=== PATIENT | male | born 1965 | race Caucasian/White ===

== ENCOUNTER → 2016-07-06 | Outpatient (CLI) | payer OTHER ==
[~2016-07-06] MED LIST: /MOXI40TA; FLEXERIL10 PO; FLON0.05; FLOV50AE; FOLI1TAB; IBUP600T; LOTRIMCREA TOPICALLY; METH2.5T; MOTRIN600 PO; NORMSALNS INHALATION; PRED10TA2; PRILOSEC40 PO; REMICAID; VIST25CA; ZANT150T
--- NOTE | 2016-07-06 11:01 | REP ---
Clinical: Persistent asthma . Comparison: 11/15/2013 . Technique: PA and lateral. Findings: The mediastinum and cardiac silhouette are normal. The lung nieto are clear and without acute consolidation, effusion, or pneumothorax. The skeletal structures are intact and normal. Impression: 1. No acute cardiopulmonary process. Signed by Joel Norris MD 07/06/2016 10:52 A
== END ==
LOC: M SMT 09:53
PROVIDERS: ATTEND Internal Medicine Pulmonary Disease
DX: J45.40 Moderate persistent asthma, uncomplicated (principal)

== ENCOUNTER → 2016-07-06 | Outpatient (CLI) | payer OTHER ==
--- NOTE | 2016-07-06 11:02 | REP ---
Clinical: Hip pain. Technique: AP, cephalic angled, and bilateral oblique views of the sacroiliac joints. Findings: The sacroiliac joints are symmetric and normal for age. No excessive sclerotic, degenerative, or osteophytic changes are appreciated. Impression: Normal radiographic evaluation of the sacroiliac joints Signed by Joel Norris MD 07/06/2016 10:53 A
--- NOTE | 2016-07-06 11:03 | REP ---
Clinical: Right hip pain. Technique: Neutral and frog lateral views of the right hip. Findings: Subtle increased sclerosis to the acetabular roof with minimal joint space narrowing and small spurring noted. No periarticular calcifications. No evidence for acute or healed fracture. Impression: Mild age-related degenerative changes. Signed by Joel Norris MD 07/06/2016 10:54 A
--- NOTE | 2016-07-06 11:09 | REP ---
LUMBAR SPINE, FIVE VIEWS: HISTORY: Back pain. COMPARISON: 03/05/2009 There is no acute fracture or subluxation. The L5-S1 intervertebral disc is decreased in height consistent with disc degeneration. Osteophytes are present on L2 and L5. The facet joints are normal in appearance. IMPRESSION: Degenerative change as described above. Signed by Hair Salgado MD 07/06/2016 11:15 A
== END ==
LOC: M SMT 10:11
PROVIDERS: ATTEND Internal Medicine Rheumatology
DX: M54.5 Low back pain (principal); M25.551 Pain in right hip

== ENCOUNTER 2016-12-09 11:55 | Emergency (ER) | payer OTHER ==
[~2016-12-09] VITALS: Ht 175.3 cm; Wt 100.0 kg
[2016-12-09] MEDS ORDERED: CLINDAMYCIN PO (12:19)
[2016-12-09] MEDS ORDERED: SIMP50IN2 SC (12:19)
[2016-12-09] MEDS ORDERED: SYMB16INH INH (12:19)
[2016-12-09] MEDS ORDERED: LIDO1OIN2 (12:19)
[2016-12-09 13:15] LABS: BASO # 0.1 K/mm3 (0.0-0.2); BASO % 0.9 % (0.0-1.0); EOS # 0.3 K/mm3 (0.0-0.50); EOS % 2.6 % (0.0-3.0); LARGE UNSTAINED CELL # 0.2 K/mm3 (0.0-0.4); LARGE UNSTAINED CELL % 1.7 % (0.0-4.0); LYMPH # 2.5 K/mm3 (1.5-4.5); LYMPH % 21.7 % (24.0-44.0); MEAN CORPUSCULAR HEMOGLOBIN 32.5 pg (27.0-33.0); MEAN CORPUSCULAR HGB CONC 35.3 g/dl (32.0-36.5); MEAN CORPUSCULAR VOLUME 92.1 fl (80.0-96.0); MONO # 0.5 K/mm3 (0.0-0.8); MONO % 3.8 % (0.0-5.0); NEUTROPHILS # 8.1 K/mm3 (1.8-7.7); NEUTROPHILS % 69.2 % (36.0-66.0); PLATELET COUNT, AUTOMATED 228 k/mm3 (150-450); RED CELL DISTRIBUTION WIDTH 12.7 % (11.5-14.5); WHITE BLOOD COUNT 11.7 K/mm3 (4.0-10.0)
[2016-12-09] MEDS ORDERED: ALBUTEROL SULFATE 2.5 MG/0.5 ML INH NEB SOLN NEB ONE (13:15)
[2016-12-09] MEDS ORDERED: ASPIRIN 81 MG CHEW TABLET PO ONE (13:15)
[2016-12-09 13:25] LABS: ALBUMIN 3.7 GM/DL (3.2-5.2); ALBUMIN/GLOBULIN RATIO 1.09 (1.00-1.93); ALKALINE PHOSPHATASE 52 U/L (45-117); ALT/SGPT 50 U/L (12-78); ANION GAP 6 MEQ/L (8-16); AST/SGOT 23 U/L (15-37); BILIRUBIN,DIRECT 0.2 MG/DL (0.0-0.2); BILIRUBIN,TOTAL 1.1 MG/DL (0.2-1.0); BLOOD UREA NITROGEN 22 MG/DL (7-18); CALCIUM LEVEL 8.6 MG/DL (8.5-10.1); CARBON DIOXIDE LEVEL 26 MEQ/L (21-32); CHLORIDE LEVEL 106 MEQ/L (98-107); CREATININE FOR GFR 1.23 MG/DL (0.70-1.30); GLOMERULAR FILTRATION RATE > 60.0 (>56); GLUCOSE, FASTING 150 MG/DL (70-105); POTASSIUM SERUM 3.9 MEQ/L (3.5-5.1); SODIUM LEVEL 138 MEQ/L (136-145); TOTAL PROTEIN 7.1 GM/DL (6.4-8.2)
--- NOTE | 2016-12-09 13:40 | REP ---
Portable chest, single AP view, patient sitting: Comparison is 07/06/2016. The lung nieto are clear. The cardiac size is normal. The delilah, mediastinum, and bony thorax are unremarkable. Impression: Negative portable chest. Signed by Isidro Rose MD 12/09/2016 01:31 P
[2016-12-09 14:02] VITALS: BP 153/77
[2016-12-09] MEDS ORDERED: PRED20TA PO (14:16)
[2016-12-09] MEDS ORDERED: predniSONE 20 MG TAB PO ONE (14:30)
--- NOTE | 2016-12-09 16:32 | ECGEPIP ---
Stationary ECG Study [facility] - ED Test Date: 2016-12-09 Pat Name: SEBASTIEN CHAVES Department: Room: - Gender: M Performance Consultant: franklin : 1965 Requested By: Long Miller Order Number: [id number] Reading MD: Samia Jiang Measurements Intervals [place] Rate: 78 P: 44 UT: 144 QRS: 10 QRSD: 94 T: 110 QT: 398 QTc: 455 Interpretive Statements SINUS RHYTHM ST DEVIATION AND MODERATE T-WAVE ABNORMALITY, CONSIDER ISCHEMIA NO PRIOR FOR COMPARISON Electronically Signed On 12-09-2016 16:32:11 EDT by Samia Jiang
== END 2016-12-09 14:34 | disposition home or self-care (01) ==
LOC: EDBD 11:55 → M ED 13:07
DX: F41.0 Panic disorder [episodic paroxysmal anxiety] (principal); J98.01 Acute bronchospasm; I10 Essential (primary) hypertension; G47.30 Sleep apnea, unspecified; F32.9 Major depressive disorder, single episode, unspecified; Z86.14 Personal history of Methicillin resistant Staphylococcus aureus infection; M45.9 Ankylosing spondylitis of unspecified sites in spine; Z79.899 Other long term (current) drug therapy; Z88.0 Allergy status to penicillin; Z88.8 Allergy status to other drugs, medicaments and biological substances; Z88.6 Allergy status to analgesic agent

== ENCOUNTER → 2017-01-26 | Outpatient (REF) | payer OTHER ==
[~2017-01-26] MED LIST changes: +CLINDAMYCIN PO; +LIDO1OIN2; +PRED20TA PO; +SIMP50IN2 SC; +SYMB16INH INH
[2017-01-26 18:49] LABS: ALBUMIN 4.1 GM/DL (3.2-5.2); ALBUMIN/GLOBULIN RATIO 1.24 (1.00-1.93); ALKALINE PHOSPHATASE 60 U/L (45-117); ALT/SGPT 55 U/L (12-78); ANION GAP 10 MEQ/L (8-16); AST/SGOT 37 U/L (15-37); BILIRUBIN,TOTAL 0.8 MG/DL (0.2-1.0); BLOOD UREA NITROGEN 14 MG/DL (7-18); CALCIUM LEVEL 9.2 MG/DL (8.5-10.1); CARBON DIOXIDE LEVEL 21 MEQ/L (21-32); CHLORIDE LEVEL 111 MEQ/L (98-107); CHOLESTEROL LEVEL 212 MG/DL (<200); CREATININE FOR GFR 1.07 MG/DL (0.70-1.30); GLOMERULAR FILTRATION RATE > 60.0 (>56); GLUCOSE, FASTING 98 MG/DL (70-105); POTASSIUM SERUM 4.6 MEQ/L (3.5-5.1); SODIUM LEVEL 142 MEQ/L (136-145); TOTAL PROTEIN 7.4 GM/DL (6.4-8.2); TRIGLYCERIDES LEVEL 247 MG/DL (<150)
== END ==
LOC: M LAB REF 16:37
PROVIDERS: ATTEND Nurse Practitioner Family
DX: E78.5 Hyperlipidemia, unspecified (principal); I10 Essential (primary) hypertension; E55.9 Vitamin D deficiency, unspecified

== ENCOUNTER 2018-07-25 11:02 | Emergency (ER) | payer OTHER, MEDICARE ==
[~2018-07-25] VITALS: Ht 175.3 cm; Wt 104.5 kg
[2018-07-25 11:02] VITALS: BP 175/85
[2018-07-25] MEDS ORDERED: ATOR40TA75 PO (11:14)
--- NOTE | 2018-07-25 12:10 | REP ---
Clinical: Right knee pain Technique: AP, lateral, bilateral oblique and sunrise views. Findings: The osseous structures and joint spaces are intact and normal. There is no evidence for acute fracture or dislocation. No joint effusion is appreciated. Surrounding soft tissues are unremarkable. No subcutaneous emphysema or radiodense foreign body. Impression: Normal age-appropriate right knee examination. No acute fracture or dislocation. Electronically Signed by Joel Norris MD 07/25/2018 12:02 P
== END 2018-07-25 13:01 | disposition home or self-care (01) ==
LOC: M ED 11:02
DX: S86.911A Strain of unspecified muscle(s) and tendon(s) at lower leg level, right leg, initial encounter (principal); X58.XXXA Exposure to other specified factors, initial encounter; Y92.099 Unspecified place in other non-institutional residence as the place of occurrence of the external cause; Y93.9 Activity, unspecified; Y99.9 Unspecified external cause status; J45.909 Unspecified asthma, uncomplicated; Z79.899 Other long term (current) drug therapy; Z88.0 Allergy status to penicillin; Z88.8 Allergy status to other drugs, medicaments and biological substances

== ENCOUNTER → 2018-09-15 | Outpatient (CLI) | payer MEDICARE ==
[~2018-09-15] MED LIST changes: +ATOR40TA75 PO
--- NOTE | 2018-09-15 10:57 | REP ---
CT STUDY OF THE NECK WITHOUT CONTRAST: HISTORY: Tightening sensation of the neck with shortness of breath. FINDINGS: Preliminary citrix administrator views are unremarkable. On axial CT images, the parotid and submandibular glands are normal and symmetric. Thyroid lobes are unremarkable. There is no evidence of intrahyoid or suprahyoid adenopathy. No neck masses seen. Tonsillar and peritonsillar soft tissues are symmetric and unremarkable. Floor of mouth soft tissues are unremarkable. The lung apices are clear. There are degenerative disc and facet changes in the cervical spine diffusely. No acute bony abnormality is seen. The prevertebral/retropharyngeal soft tissues are unremarkable. Glottic and subglottic airway is unremarkable. Normal epiglottis is seen. IMPRESSION: Negative soft-tissue neck CT study. Electronically Signed by Leon Multani MD 09/15/2018 12:51 P
== END ==
LOC: M RAD 10:03
PROVIDERS: ATTEND Internal Medicine Pulmonary Disease
DX: R06.02 Shortness of breath (principal); M50.30 Other cervical disc degeneration, unspecified cervical region

== ENCOUNTER → 2018-09-21 | Outpatient (CLI) | payer MEDICARE ==
[2018-09-21 14:32] LABS: BASO # 0.1 10^3/uL (0.0-0.2); BASO % 0.5 % (0.0-1.0); EOS # 0.3 10^3/uL (0.0-0.50); EOS % 1.8 % (0.0-3.0); HEMATOCRIT 48.7 % (42.0-52.0); HEMOGLOBIN 16.6 g/dl (13.5-17.5); LYMPH # 2.9 10^3/uL (1.5-4.5); LYMPH % 19.6 % (24.0-44.0); MEAN CORPUSCULAR HEMOGLOBIN 30.2 pg (27.0-33.0); MEAN CORPUSCULAR HGB CONC 34.1 g/dl (32.0-36.5); MEAN CORPUSCULAR VOLUME 88.7 fl (80.0-96.0); MONO # 0.9 10^3/uL (0.0-0.8); MONO % 5.8 % (0.0-5.0); NEUTROPHILS # 10.5 10^3/uL (1.8-7.7); NEUTROPHILS % 71.9 % (36.0-66.0); PLATELET COUNT, AUTOMATED 267 10^3/uL (150-450); RED BLOOD COUNT 5.49 10^6/uL (4.30-6.10); WHITE BLOOD COUNT 14.6 10^3/uL (4.0-10.0)
[2018-09-21 14:55] LABS: ALT/SGPT 47 U/L (12-78); BILIRUBIN,TOTAL 0.7 MG/DL (0.2-1.0); BLOOD UREA NITROGEN 15 MG/DL (7-18); C REACTIVE PROTEIN QUANTITATIV < 0.30 MG/DL (0.00-0.30); CALCIUM LEVEL 9.1 MG/DL (8.5-10.1); CARBON DIOXIDE LEVEL 29 MEQ/L (21-32); CHLORIDE LEVEL 108 MEQ/L (98-107); CREATININE FOR GFR 1.15 MG/DL (0.70-1.30); GLOMERULAR FILTRATION RATE > 60.0 (>56); GLUCOSE, FASTING 109 MG/DL (70-100); POTASSIUM SERUM 3.7 MEQ/L (3.5-5.1); SODIUM LEVEL 141 MEQ/L (136-145); TOTAL PROTEIN 7.3 GM/DL (6.4-8.2)
[2018-09-21 15:14] LABS: ERYTHROCYTE SEDIMENTATION RATE 1 mm/hr (0-20)
--- NOTE | 2018-09-21 21:33 | ECGEPIP ---
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
== END ==
LOC: M LAB 14:01
PROVIDERS: ATTEND Family Medicine Addiction Medicine
DX: M25.561 Pain in right knee (principal); R03.0 Elevated blood-pressure reading, without diagnosis of hypertension

== ENCOUNTER → 2018-09-21 | Outpatient (CLI) | payer MEDICARE ==
--- NOTE | 2018-09-21 14:41 | REP ---
Clinical: Painful cough and chest congestion. Comparison: 07/06/2016 . Technique: PA and lateral. Findings: The mediastinum and cardiac silhouette are normal. The lung nieto are clear and without acute consolidation, effusion, or pneumothorax. The skeletal structures are intact and normal. Impression: 1. No acute cardiopulmonary process. Electronically Signed by Joel Norris MD 09/21/2018 02:33 P
== END ==
LOC: M RAD 13:57
PROVIDERS: ATTEND Nurse Practitioner Adult Health
DX: J06.9 Acute upper respiratory infection, unspecified (principal)

== ENCOUNTER → 2018-09-28 | Outpatient (CLI) | payer MEDICARE ==
[~2018-09-28] MED LIST changes: -/MOXI40TA; +AVEL1TAB2
--- NOTE | 2018-09-28 16:48 | REP ---
MAXILLOFACIAL CT WITHOUT CONTRAST: HISTORY: Upper respiratory infection. COMPARISON: 10/11/2013. Moderate mucosal thickening is present in the right maxillary sinus. Mild mucosal thickening is present in the ethmoid sinuses. Minimal mucosal is present in the frontal , sphenoid and left maxillary sinuses. Mucosal thickening involves the osteomeatal units . The middle and inferior nasal turbinates are partially paradoxical. There is edgar bullosa of the right middle nasal turbinate. There is minimal deviation of the nasal septum to the left posteriorly and to the right and anteriorly . A small spur is present arising from the left side of the nasal septum. The spur abuts the left inferior nasal turbinate. The cribriform plate, medial street of the orbits and optic canals are intact. The carotid canals form a segment of the posterolateral street of the sphenoid sinus. The sphenoid sinus septum inserted into the internal carotid canals street. IMPRESSION: Sinus mucosal thickening as described above. Electronically Signed by Hair Salgado MD 09/28/2018 04:53 P
== END ==
LOC: M RAD 16:07
PROVIDERS: ATTEND Nurse Practitioner Adult Health
DX: J34.2 Deviated nasal septum (principal); J34.89 Other specified disorders of nose and nasal sinuses

== ENCOUNTER → 2018-10-05 | Outpatient (REF) | payer MEDICARE ==
[2018-10-05 17:17] LABS: HEPATITIS B SURFACE ANTIBODY NEGATIVE (POSITIVE); HEPATITIS B SURFACE ANTIGEN NEGATIVE (NEGATIVE)
== END ==
LOC: M SFHCPLAZ 14:24
PROVIDERS: ATTEND Internal Medicine Rheumatology
DX: Z79.899 Other long term (current) drug therapy (principal)

== ENCOUNTER → 2019-01-05 | Outpatient (CLI) | payer MEDICARE ==
[2019-01-05 08:28] LABS: BASO # 0.1 10^3/uL (0.0-0.2); BASO % 0.6 % (0.0-1.0); EOS # 0.3 10^3/uL (0.0-0.50); EOS % 3.1 % (0.0-3.0); HEMOGLOBIN 16.4 g/dl (13.5-17.5); LYMPH # 3.2 10^3/uL (1.5-4.5); LYMPH % 30.6 % (24.0-44.0); MEAN CORPUSCULAR HEMOGLOBIN 31.7 pg (27.0-33.0); MEAN CORPUSCULAR HGB CONC 34.2 g/dl (32.0-36.5); MEAN CORPUSCULAR VOLUME 92.8 fl (80.0-96.0); MONO # 0.8 10^3/uL (0.0-0.8); MONO % 7.1 % (0.0-5.0); NEUTROPHILS # 6.1 10^3/uL (1.8-7.7); NEUTROPHILS % 58.1 % (36.0-66.0); PLATELET COUNT, AUTOMATED 237 10^3/uL (150-450); RED BLOOD COUNT 5.17 10^6/uL (4.30-6.10); WHITE BLOOD COUNT 10.5 10^3/uL (4.0-10.0)
[2019-01-05 08:49] LABS: ERYTHROCYTE SEDIMENTATION RATE 2 mm/hr (0-20)
[2019-01-05 08:50] LABS: ALBUMIN 3.8 GM/DL (3.2-5.2); ALT/SGPT 43 U/L (12-78); BILIRUBIN,TOTAL 0.4 MG/DL (0.2-1.0); BLOOD UREA NITROGEN 15 MG/DL (7-18); CARBON DIOXIDE LEVEL 29 MEQ/L (21-32); CHLORIDE LEVEL 111 MEQ/L (98-107); CREATININE FOR GFR 1.17 MG/DL (0.70-1.30); GLOMERULAR FILTRATION RATE > 60.0 (>56); GLUCOSE, FASTING 124 MG/DL (70-100); SODIUM LEVEL 143 MEQ/L (136-145); TOTAL PROTEIN 6.7 GM/DL (6.4-8.2)
== END ==
LOC: M LAB 08:03
PROVIDERS: ATTEND Internal Medicine Rheumatology
DX: M45.9 Ankylosing spondylitis of unspecified sites in spine (principal)

== ENCOUNTER → 2019-01-31 | Outpatient (CLI) | payer MEDICARE ==
[2019-01-31 13:09] LABS: BLOOD UREA NITROGEN 14 MG/DL (7-18); CALCIUM LEVEL 9.3 MG/DL (8.5-10.1); CARBON DIOXIDE LEVEL 26 MEQ/L (21-32); CHLORIDE LEVEL 110 MEQ/L (98-107); CREATININE FOR GFR 1.08 MG/DL (0.70-1.30); GLOMERULAR FILTRATION RATE > 60.0 (>56); GLUCOSE, FASTING 114 MG/DL (70-100); POTASSIUM SERUM 4.2 MEQ/L (3.5-5.1); SODIUM LEVEL 142 MEQ/L (136-145)
[2019-01-31 13:10] LABS: ALBUMIN 3.9 GM/DL (3.2-5.2); ALT/SGPT 45 U/L (12-78); BILIRUBIN,TOTAL 0.6 MG/DL (0.2-1.0); CHOLESTEROL LEVEL 201 MG/DL (<200); CHOLESTEROL RISK RATIO 5.432 (<5); HDL CHOLESTEROL 37 MG/DL (>40); LDL CHOLESTEROL 144 MG/DL (<100); NON-HDL-C 164 MG/DL; TOTAL PROTEIN 6.8 GM/DL (6.4-8.2); TRIGLYCERIDES LEVEL 100 MG/DL (<150)
== END ==
LOC: M LAB 12:09
PROVIDERS: ATTEND Nurse Practitioner Adult Health
DX: E78.5 Hyperlipidemia, unspecified (principal)

== ENCOUNTER 2019-03-02 08:21 | Day surgery (SDC) | payer MEDICARE ==
[2019-03-02] VITALS (10 sets, daily range): BP systolic 151–176; BP diastolic 95–118
[~2019-03-02] VITALS: Ht 172.7 cm; Wt 101.7 kg
[~2019-03-02 08:21] MED LIST changes: +DOXY-350 PO; +FLON1SPR; +LIDOCAINE W/EPINEPHRINE 1% 20ML VIAL As Ordered ONE; +METHYLENE BLUE 0.5% (5MG/ML) 10 ML AMP (PROVAYBLUE)(Q9968 PER 1MG) As Ordered ONE; +OXYMETAZOLINE NASAL SPRAY (AFRIN) As Ordered ONE; +PERCOCET PO
[2019-03-02] MEDS ORDERED: PROPOFOL 200 MG/20 ML VIAL As Ordered ONE (10:03)
[2019-03-02] MEDS ORDERED: LIDOCAINE 2% INJ 100 MG/5 ML SDV (FOR ANES.) As Ordered ONE (10:04)
[2019-03-02] MEDS ORDERED: ROCURONIUM BROMIDE 50 MG/5 ML VIAL As Ordered ONE (10:04)
[2019-03-02] MEDS ORDERED: dexameTHASONE 4 MG/ML 1ML VIAL (J1100) As Ordered ONE (10:04)
[2019-03-02] MEDS ORDERED: ONDANSETRON 4MG/2ML VIAL (J2405) As Ordered ONE (10:04)
[2019-03-02] MEDS ORDERED: fentaNYL 250 MCG/5 ML INJECTION (J3010) As Ordered ONE (10:18)
[2019-03-02] MEDS ORDERED: MIDAZOLAM INJ 2 MG/2 ML VIAL (J2250) As Ordered ONE (10:19)
[2019-03-02] MEDS ORDERED: SUGAMMADEX SODIUM 500 MG/5 ML VIAL (BRIDION) As Ordered ONE (11:38)
[2019-03-02] MEDS ORDERED: ACETAMINOPHEN 1000MG 100ML IV BTL (OFIRMEV) (J0131 PER 10MG) As Ordered ONE (12:04)
[2019-03-02] MEDS ORDERED: KETOROLAC 60 MG/2 ML VIAL (J1885) As Ordered ONE (12:04)
[2019-03-02] MEDS ORDERED: fentaNYL 100 MCG/2 ML INJECTION (J3010) IV PRN (12:45)
[2019-03-02] MEDS ORDERED: ONDANSETRON 4MG/2ML VIAL (J2405) IV PRN ×2 (12:45→18:30)
[2019-03-02] MEDS ORDERED: LR 1,000 ML IV SCH (12:45)
[2019-03-02] MEDS ORDERED: oxyCODONE 5MG TAB PO PRN (12:45)
[2019-03-02] MEDS: PERCOCET 5MG/325MG TAB PO PRN ×2 (17:04→23:24)
[2019-03-02] MEDS: LR 1,000 ML IV SCH (18:56)
[2019-03-02] MEDS: DOXYCYCLINE HYCLATE 100 MG TAB PO SCH (20:01)
[2019-03-02] MEDS: IBUPROFEN 800 MG TAB PO PRN (20:02)
[2019-03-03 00:30] VITALS: BP 160/100
[2019-03-03 02:00] VITALS: BP 175/115
[2019-03-03] MEDS: LR 1,000 ML IV SCH (04:10)
[2019-03-03 04:19] VITALS: BP 158/90
[2019-03-03 05:38] VITALS: BP 152/92
[2019-03-03] MEDS: IBUPROFEN 800 MG TAB PO PRN (07:38)
[2019-03-03] MEDS: DOXYCYCLINE HYCLATE 100 MG TAB PO SCH (07:39)
[2019-03-03 10:00] VITALS: BP 128/78
--- NOTE | 2019-03-14 09:01 | RO ---
DATE OF PROCEDURE: 03/02/2019 PREOPERATIVE DIAGNOSIS: Deviated septum, chronic rhinitis. POSTOPERATIVE DIAGNOSIS: Deviated septum, chronic rhinitis. PROCEDURE: Septoplasty, partial reduction of inferior turbinates. SURGEON: Dr. Eyal Tan QA AUTOMATION ARCHITECT: ANESTHESIA: INDICATIONS: 53-year-old with a long history of nasal obstruction and congestion. DESCRIPTION OF PROCEDURE: After satisfactory general endotracheal anesthesia was administered and pharyngeal pack placed, the nose was prepared for surgery by placing cotton soaked pledgets with Afrin solution inside the nasal cavity bilaterally. 1% Xylocaine with 1:100,000 epinephrine was injected into the septum and inferior turbinates. A Ignacio incision was made on the left side of the nose. A mucoperichondrial flap and envelope was created on the left side of the nasal septum and carried down to the junction of the bony and cartilaginous septum. This was then with an elevator, and an envelope was then created on the right side of the septum. A Alley scissors was used to make a cut high in the perpendicular plate in the midportion of the vomer, and a central segment of the bony septum was resected. Next, with the round knife on the [place]lington elevator, a strip of cartilage was resected from the floor of the nose, mobilizing the quadrilateral cartilage and creating a swinging door. Then, a central segment of cartilaginous septum was resected, preserving a 1 cm dorsal and caudal strut. Double-action rongeur was used to take down deflected portions of the perpendicular plate, as well. Finally, the maxillary crest spur was taken down after elevating mucoperiosteum off both sides of it with a chisel. A segment of the resected cartilage was morselized and placed back into the septal envelope. The incision was closed using an interrupted #5-0 chromic suture. Then, a #4-0 plain suture was placed in a [id number] fashion through the two leaves of mucoperichondrium to appose them. Next, the inferior turbinates were medially infractured. A #15 blade was used to make an incision on the anterior tip of the inferior turbinate. With a Darlington elevator, a mucoperiosteal tunnel was created on the medial side of the turbinate. Then, the microdebrider with a 2.9 mm blade was inserted into the tunnel, and the underlying turbinate bone was weakened and partially resected using the microdebrider. Then, the turbinate was laterally outfractured. The posteroinferior tip of the turbinate was then cauterized with suction cautery. Finally, Bailey splints were placed into the nose and sewn to the columella with a #2-0 Prolene suture. The pharyngeal pack and throat suctioned. The patient was awakened, extubated, and sent to recovery in satisfactory condition. He was given instructions on use of C-PAP with his nasal splints in. He was given a prescription for Tylox one by mouth every 4 hours and doxycycline 100 mg twice a day. He will be seen back in the office in three days for splint removal.
== END 2019-03-03 12:44 | disposition home or self-care (01) ==
LOC: M SDC 08:21 → M MSPAV 13:36 → M SDC 03-03 12:44
PROVIDERS: ATTEND Specialist
DX: J34.2 Deviated nasal septum (principal); J34.3 Hypertrophy of nasal turbinates; K21.9 Gastro-esophageal reflux disease without esophagitis; G47.33 Obstructive sleep apnea (adult) (pediatric); J44.9 Chronic obstructive pulmonary disease, unspecified; F41.9 Anxiety disorder, unspecified; F32.9 Major depressive disorder, single episode, unspecified; F12.10 Cannabis abuse, uncomplicated; Z88.0 Allergy status to penicillin; Z79.899 Other long term (current) drug therapy; Z88.8 Allergy status to other drugs, medicaments and biological substances
CPT/HCPCS: 30140; 30520; 88300; 96361; 96374; J0131; J1100; J1885; J2250; J2405; J3010; Q9968

== ENCOUNTER 2019-06-12 08:31 | Day surgery (SDC) | payer MEDICARE ==
[~2019-06-12] VITALS: Ht 172.7 cm; Wt 101.1 kg
[~2019-06-12 08:31] MED LIST changes: +CICL0.776 EX; +KETO2CR EXT; +LIDOCAINE 2% INJ 100 MG/5 ML SDV (FOR ANES.) As Ordered ONE; -LIDOCAINE W/EPINEPHRINE 1% 20ML VIAL As Ordered ONE; -METHYLENE BLUE 0.5% (5MG/ML) 10 ML AMP (PROVAYBLUE)(Q9968 PER 1MG) As Ordered ONE; +NS 1,000 ML IV ONE; -OXYMETAZOLINE NASAL SPRAY (AFRIN) As Ordered ONE; +PROPOFOL 200 MG/20 ML VIAL As Ordered ONE
[2019-06-12] MEDS ORDERED: PROPOFOL 200 MG/20 ML VIAL As Ordered ONE (09:25)
--- NOTE | 2019-06-12 09:42 | ROOR ---
Patient Name: Dylan Ramírez Procedure Date: 06/12/2019 9:14 AM Date of : 1965 Age: 53 Room: [facility] Gender: Male Note Status: Finalized Procedure: Colonoscopy Indications: High risk colon cancer surveillance: Personal history of colonic polyps, Last colonoscopy: March 2014, Family history of colon cancer in a first-degree relative Providers: Skyler CAAL MD Referring MD: Keily PIRES NP Requesting Provider: Medicines: Monitored Anesthesia Care Complications: No immediate complications. Procedure: Pre-Anesthesia Assessment: - The heart rate, respiratory rate, oxygen saturations, blood pressure, adequacy of pulmonary ventilation, and response to care were monitored throughout the procedure. The Colonoscope was introduced through the anus and advanced to the cecum, identified by appendiceal orifice and ileocecal valve. The colonoscopy was performed without difficulty. The patient tolerated the procedure well. The quality of the bowel preparation was good. Findings: Two sessile polyps were found in the sigmoid colon and ascending colon. The polyps were 4 to 5 mm in size. These polyps were removed with a cold snare. Resection and retrieval were complete. Multiple diverticula were found in the sigmoid colon. Internal hemorrhoids were found during retroflexion. The hemorrhoids were medium-sized. The exam was otherwise without abnormality on direct and retroflexion views. The perianal and digital rectal examinations were normal. Impression: - Two 4 to 5 mm polyps in the sigmoid colon and in the ascending colon, removed with a cold snare. Resected and retrieved. - Diverticulosis in the sigmoid colon. - Internal hemorrhoids. - The examination was otherwise normal on direct and retroflexion views. Recommendation: - Repeat colonoscopy in 5 years. Skyler Caal MD Skyler CAAL MD 06/12/2019 9:41:34 AM Electronically signed by Skyler CAAL MD Number of Addenda: 0 Note Initiated On: 06/12/2019 9:14 AM Estimated Blood Loss: Estimated blood loss: none.
[2019-06-12 10:10] VITALS: BP 151/82
== END 2019-06-12 10:39 | disposition home or self-care (01) ==
LOC: M OPP 08:31
PROVIDERS: ATTEND Internal Medicine Gastroenterology
DX: Z12.11 Encounter for screening for malignant neoplasm of colon (principal); Z86.010 Personal history of colon polyps; Z80.0 Family history of malignant neoplasm of digestive organs; D12.5 Benign neoplasm of sigmoid colon; D12.2 Benign neoplasm of ascending colon; K64.8 Other hemorrhoids; K57.30 Diverticulosis of large intestine without perforation or abscess without bleeding; Z79.899 Other long term (current) drug therapy; F12.90 Cannabis use, unspecified, uncomplicated; Z88.0 Allergy status to penicillin; Z88.8 Allergy status to other drugs, medicaments and biological substances

== ENCOUNTER → 2019-06-14 | Outpatient (REF) | payer MEDICARE ==
[~2019-06-14] MED LIST changes: -LIDOCAINE 2% INJ 100 MG/5 ML SDV (FOR ANES.) As Ordered ONE; -NS 1,000 ML IV ONE; -PROPOFOL 200 MG/20 ML VIAL As Ordered ONE
[2019-06-14 12:16] LABS: BASO # 0.1 10^3/uL (0.0-0.2); BASO % 0.5 % (0.0-1.0); EOS # 0.4 10^3/uL (0.0-0.5); EOS % 3.2 % (0.0-3.0); HEMATOCRIT 53.4 % (42.0-52.0); HEMOGLOBIN 17.5 g/dl (13.5-17.5); LYMPH # 3.6 10^3/uL (1.5-5.0); LYMPH % 30.1 % (24.0-44.0); MEAN CORPUSCULAR HEMOGLOBIN 30.5 pg (27.0-33.0); MEAN CORPUSCULAR HGB CONC 32.8 g/dl (32.0-36.5); MEAN CORPUSCULAR VOLUME 93.2 fl (80.0-96.0); MONO # 0.9 10^3/uL (0.0-0.8); MONO % 7.1 % (0.0-5.0); NEUTROPHILS % 58.6 % (36.0-66.0); PLATELET COUNT, AUTOMATED 250 10^3/uL (150-450); RED BLOOD COUNT 5.73 10^6/uL (4.30-6.10); WHITE BLOOD COUNT 11.9 10^3/uL (4.0-10.0)
[2019-06-14 12:24] LABS: ALBUMIN 4.1 GM/DL (3.2-5.2); ALT/SGPT 48 U/L (12-78); BILIRUBIN,TOTAL 0.6 MG/DL (0.2-1.0); BLOOD UREA NITROGEN 13 MG/DL (7-18); C REACTIVE PROTEIN QUANTITATIV < 0.30 MG/DL (0.00-0.30); CALCIUM LEVEL 9.7 MG/DL (8.5-10.1); CARBON DIOXIDE LEVEL 27 MEQ/L (21-32); CHLORIDE LEVEL 109 MEQ/L (98-107); CREATININE FOR GFR 1.04 MG/DL (0.70-1.30); GLOMERULAR FILTRATION RATE > 60.0 (>56); GLUCOSE, FASTING 117 MG/DL (70-100); POTASSIUM SERUM 4.2 MEQ/L (3.5-5.1); SODIUM LEVEL 142 MEQ/L (136-145); TOTAL PROTEIN 7.4 GM/DL (6.4-8.2)
[2019-06-14 12:48] LABS: ERYTHROCYTE SEDIMENTATION RATE 1 mm/hr (0-20)
== END ==
LOC: M SFHCRHEU 09:14
PROVIDERS: ATTEND Internal Medicine Rheumatology
DX: M45.9 Ankylosing spondylitis of unspecified sites in spine (principal)
CPT/HCPCS: 36415; 80053; 85025; 85652; 86140; G0463

== ENCOUNTER → 2019-10-25 | Outpatient (REF) | payer MEDICARE ==
[2019-10-25 19:08] LABS: HEMOGLOBIN A1c 6.2 %
== END ==
LOC: M LAB REF 17:00
PROVIDERS: ATTEND Nurse Practitioner Adult Health
DX: R73.03 Prediabetes (principal)

== ENCOUNTER → 2019-12-18 | Outpatient (REF) | payer MEDICARE, MEDICAID ==
[~2019-12-18] MED LIST changes: +CICL0.7733 EX; -CICL0.776 EX
[2019-12-18 19:35] LABS: BASO # 0.1 10^3/uL (0.0-0.2); BASO % 0.8 % (0.0-1.0); EOS # 0.4 10^3/uL (0.0-0.5); EOS % 3.3 % (0.0-3.0); HEMOGLOBIN 17.3 g/dl (13.5-17.5); LYMPH # 3.3 10^3/uL (1.5-5.0); LYMPH % 27.1 % (24.0-44.0); MEAN CORPUSCULAR HEMOGLOBIN 31.2 pg (27.0-33.0); MEAN CORPUSCULAR HGB CONC 33.9 g/dl (32.0-36.5); MEAN CORPUSCULAR VOLUME 91.9 fl (80.0-96.0); MONO # 0.9 10^3/uL (0.0-0.8); MONO % 7.2 % (0.0-5.0); NEUTROPHILS # 7.4 10^3/uL (1.5-8.5); NEUTROPHILS % 61.3 % (36.0-66.0); PLATELET COUNT, AUTOMATED 242 10^3/uL (150-450); RED BLOOD COUNT 5.55 10^6/uL (4.30-6.10)
[2019-12-18 20:10] LABS: ALBUMIN 4.1 GM/DL (3.2-5.2); ALT/SGPT 62 U/L (12-78); BILIRUBIN,TOTAL 0.6 MG/DL (0.2-1.0); BLOOD UREA NITROGEN 13 MG/DL (7-18); CALCIUM LEVEL 9.4 MG/DL (8.5-10.1); CARBON DIOXIDE LEVEL 26 MEQ/L (21-32); CHLORIDE LEVEL 108 MEQ/L (98-107); CHOLESTEROL LEVEL 243 MG/DL (<200); CHOLESTEROL RISK RATIO 7.363 (<5); CREATININE FOR GFR 1.13 MG/DL (0.70-1.30); GLOMERULAR FILTRATION RATE > 60.0 (>56); GLUCOSE, FASTING 108 MG/DL (70-100); HDL CHOLESTEROL 33 MG/DL (>40); LDL CHOLESTEROL 176 MG/DL (<100); NON-HDL-C 210 MG/DL; POTASSIUM SERUM 4.8 MEQ/L (3.5-5.1); SODIUM LEVEL 141 MEQ/L (136-145); TOTAL PROTEIN 7.5 GM/DL (6.4-8.2); TRIGLYCERIDES LEVEL 168 MG/DL (<150)
== END ==
LOC: M LAB REF 18:33
PROVIDERS: ATTEND Family Medicine Addiction Medicine
DX: Z01.818 Encounter for other preprocedural examination (principal); M25.561 Pain in right knee; R03.0 Elevated blood-pressure reading, without diagnosis of hypertension; E66.09 Other obesity due to excess calories; E78.5 Hyperlipidemia, unspecified

== ENCOUNTER → 2019-12-25 | Outpatient (CLI) | payer OTHER | LOC: M LABSMTC 09:52 | PROVIDERS: ATTEND Orthopaedic Surgery | DX: Z03.818 Encounter for observation for suspected exposure to other biological agents ruled out (principal); Z11.59 Encounter for screening for other viral diseases ==

== ENCOUNTER → 2020-01-10 | Outpatient (CLI) | payer OTHER ==
--- NOTE | 2020-01-10 12:01 | REP ---
Right lower extremity Duplex Doppler venous ultrasound: Real time compression and duplex Doppler interrogation of the right lower extremity deep venous system is performed. The right common femoral, superficial femoral and popliteal veins are fully compressible with transducer pressure and demonstrate normal spontaneous and phasic flow, without evidence of deep venous thrombosis. Impression: No evidence of deep venous thrombosis of the right lower extremity femoral popliteal venous system.
== END ==
LOC: M PLAIMG 11:14
PROVIDERS: ATTEND Orthopaedic Surgery
DX: M79.604 Pain in right leg (principal)

== ENCOUNTER → 2020-06-20 | Outpatient (CLI) | payer MEDICARE ==
[2020-06-20 12:40] LABS: BASO # 0.1 10^3/uL (0.0-0.2); BASO % 0.6 % (0.0-1.0); EOS # 0.5 10^3/uL (0.0-0.5); EOS % 4.2 % (0.0-3.0); HEMATOCRIT 47.7 % (42.0-52.0); HEMOGLOBIN 15.6 g/dl (13.5-17.5); LYMPH # 3.6 10^3/uL (1.5-5.0); LYMPH % 29.9 % (24.0-44.0); MEAN CORPUSCULAR HEMOGLOBIN 30.1 pg (27.0-33.0); MEAN CORPUSCULAR HGB CONC 32.7 g/dl (32.0-36.5); MEAN CORPUSCULAR VOLUME 92.1 fl (80.0-96.0); MONO # 0.9 10^3/uL (0.0-0.8); MONO % 7.5 % (0.0-5.0); NEUTROPHILS # 6.8 10^3/uL (1.5-8.5); NEUTROPHILS % 57.5 % (36.0-66.0); PLATELET COUNT, AUTOMATED 247 10^3/uL (150-450); RED BLOOD COUNT 5.18 10^6/uL (4.30-6.10); WHITE BLOOD COUNT 11.9 10^3/uL (4.0-10.0)
[2020-06-20 12:56] LABS: ALBUMIN 3.8 GM/DL (3.2-5.2); ALT/SGPT 60 U/L (12-78); BILIRUBIN,TOTAL 0.5 MG/DL (0.2-1.0); BLOOD UREA NITROGEN 21 MG/DL (7-18); CALCIUM LEVEL 9.3 MG/DL (8.5-10.1); CARBON DIOXIDE LEVEL 30 MEQ/L (21-32); CHLORIDE LEVEL 109 MEQ/L (98-107); CREATININE FOR GFR 1.22 MG/DL (0.70-1.30); GLOMERULAR FILTRATION RATE > 60.0 (>56); GLUCOSE, FASTING 124 MG/DL (70-100); POTASSIUM SERUM 4.4 MEQ/L (3.5-5.1); SODIUM LEVEL 142 MEQ/L (136-145); TOTAL PROTEIN 6.8 GM/DL (6.4-8.2)
[2020-06-20 13:13] LABS: ERYTHROCYTE SEDIMENTATION RATE 3 mm/hr (0-20)
== END ==
LOC: M LAB 12:05
PROVIDERS: ATTEND Internal Medicine
DX: M45.9 Ankylosing spondylitis of unspecified sites in spine (principal)

== ENCOUNTER 2021-02-12 16:30 | Observation (INO) | payer MEDICARE ==
[~2021-02-12] VITALS: Ht 175.3 cm; Wt 99.3 kg
[~2021-02-12 16:30] MED LIST changes: +FLON1SPR NARES
[2021-02-12] MEDS ORDERED: CHLO125TA PO (16:43)
[2021-02-12] MEDS ORDERED: SILD50TA2 PO (17:07)
--- NOTE | 2021-02-12 17:45 | REP ---
INDICATION: CHEST PAIN. COMPARISON: 09/21/2018. TECHNIQUE: Single portable AP view of the chest was performed. FINDINGS: There is no acute infiltrate or pulmonary edema. Lungs are clear. The heart is not significantly enlarged. The mediastinal silhouette is unremarkable. The visualized osseous structures are intact. IMPRESSION: No acute pulmonary disease. <Electronically signed by Isidro Angela > 02/12/21 [id number]
[2021-02-12 18:17] LABS: BASO # 0.1 10^3/uL (0.0-0.2); BASO % 0.6 % (0.0-1.0); EOS # 0.1 10^3/uL (0.0-0.5); EOS % 0.5 % (0.0-3.0); HEMATOCRIT 54.6 % (42.0-52.0); HEMOGLOBIN 19.4 g/dl (13.5-17.5); LYMPH # 3.7 10^3/uL (1.5-5.0); LYMPH % 19.8 % (24.0-44.0); MEAN CORPUSCULAR HEMOGLOBIN 30.8 pg (27.0-33.0); MEAN CORPUSCULAR HGB CONC 35.5 g/dl (32.0-36.5); MEAN CORPUSCULAR VOLUME 86.8 fl (80.0-96.0); MONO # 1.2 10^3/uL (0.0-0.8); MONO % 6.2 % (2.0-8.0); NEUTROPHILS # 13.5 10^3/uL (1.5-8.5); NEUTROPHILS % 72.4 % (36.0-66.0); PLATELET COUNT, AUTOMATED 329 10^3/uL (150-450); RED BLOOD COUNT 6.29 10^6/uL (4.30-6.10); WHITE BLOOD COUNT 18.7 10^3/uL (4.0-10.0)
[2021-02-12] MEDS ORDERED: ISOVUE-370 76% 100ML VIAL As Ordered ONE (18:34)
[2021-02-12] MEDS ORDERED: KCL 10MEQ/100ML SWI (KRUN) 10 MEQ in IV 1 EA IV ONE (18:40)
[2021-02-12] MEDS ORDERED: NS 1,000 ML IV ONE ×3 (18:40→22:00)
[2021-02-12] MEDS ORDERED: POTASSIUM CHLORIDE 10 MEQ SR TABLET PO ONE ×2 (18:40)
[2021-02-12 18:46] LABS: CK-MB VALUE MASS 5.3 NG/ML (<3.6); MB/CK RELATIVE INDEX 1.61 (< OR =4); TROPONIN I 0.03 NG/ML (< 0.10)
[2021-02-12 19:02] LABS: MAGNESIUM LEVEL 1.9 MG/DL (1.8-2.4)
[2021-02-12 19:09] LABS: MB/CK RELATIVE INDEX 1.85 (< OR =4); TROPONIN I 0.04 NG/ML (< 0.10)
--- NOTE | 2021-02-12 19:15 | REPVR ---
PROCEDURE INFORMATION: Exam: CT Head Without Contrast Exam date and time: 02/12/2021 6:47 PM Age: 55 years old Clinical indication: Pain; Headache; Additional info: Head pressure TECHNIQUE: Imaging protocol: Computed tomography of the head without contrast. Radiation optimization: All CT scans at this facility use at least one of these dose optimization techniques: automated exposure control; mA and/or kV adjustment per patient size (includes targeted exams where dose is matched to clinical indication); or iterative reconstruction. COMPARISON: CT Maxilofacial w/out contrast 09/28/2018 4:26 PM FINDINGS: Brain: Normal. No hemorrhage. Unremarkable white matter. No mass effect. Cerebral ventricles: Cavum septum pellucidum. Ventricles otherwise unremarkable. Paranasal sinuses: Mild bilateral inflammatory changes in the ethmoid sinuses. Mastoid air cells: Visualized mastoid air cells are well aerated. Bones/joints: Unremarkable. No acute fracture. Soft tissues: Unremarkable. IMPRESSION: No acute findings. Electronically signed by: Eliel Cordova On 02/12/2021 19:14:50 PM
--- NOTE | 2021-02-12 19:26 | REPVR ---
PROCEDURE INFORMATION: Exam: CTA Chest With Contrast Exam date and time: 02/12/2021 6:47 PM Age: 55 years old Clinical indication: Shortness of breath; Additional info: R/O pe TECHNIQUE: Imaging protocol: Computed tomographic angiography of the chest with contrast. 3D rendering (Not supervised by radiologist): MIP and/or 3D reconstructed images were created by the technologist. Radiation optimization: All CT scans at this facility use at least one of these dose optimization techniques: automated exposure control; mA and/or kV adjustment per patient size (includes targeted exams where dose is matched to clinical indication); or iterative reconstruction. Contrast material: ISOVUE 370; Contrast volume: 75 ml; Contrast route: INTRAVENOUS (IV); COMPARISON: CR PORTABLE CHEST X-RAY 02/12/2021 5:32 PM FINDINGS: Pulmonary arteries: There are no pulmonary emboli. Aorta: There is fusiform dilatation of the ascending thoracic aorta which measures 3.6 cm. maximally. There is no dissection or saccular component. Lungs: Small calcified granuloma left lower lobe; 5 mm noncalcified nodule right lung base. Lungs otherwise clear. Pleural spaces: Unremarkable. No pneumothorax. No pleural effusion. Heart: Unremarkable. No cardiomegaly. No pericardial effusion. Lymph nodes: Unremarkable. No enlarged lymph nodes. Bones/joints: The spine demonstrates mild degenerative changes. Soft tissues: Unremarkable. IMPRESSION: 1. 5 mm noncalcified nodule right lung base. For patients at low risk (minimal or absent history of smoking and of other known risk factors), no routine follow-up is indicated. For patients at high risk (history of smoking or of other known risk factors), consider optional CT Chest at 12 months. (Reference: Alda) 2. There is fusiform dilatation of the ascending thoracic aorta which measures 3.6 cm. maximally. There is no dissection or saccular component. 3. There are no pulmonary emboli. 4. No acute pulmonary parenchymal infiltrates. REFERENCES: Alda H, et al. Guidelines for Management of Incidental Pulmonary Nodules Detected on CT Images: From the Fleischner Society 2017. Radiology. 2017;284(1):228-243. Electronically signed by: Eliel Cordova On 02/12/2021 19:25:46 PM
[2021-02-12] MEDS ORDERED: CLIN1PAD2 TOP (19:57)
[2021-02-12] MEDS ORDERED: TACR0.1O TOP (19:57)
[2021-02-12] MEDS ORDERED: ASPI-161 PO (19:57)
[2021-02-12] MEDS ORDERED: [UNRECOGNIZED DRUG - OTHER] TOP (19:57)
[2021-02-12] MEDS ORDERED: AIRB1CHW3 PO (19:57)
[2021-02-12] MEDS: SYMBICORT 160/4.5MCG INHALER 6GM INH SCH (20:00)
[2021-02-12] MEDS ORDERED: HOME MED LIST COMPLETE! XX SCH (20:00)
[2021-02-12] MEDS ORDERED: amLODIPine 5 MG TAB PO ONE (20:15)
--- NOTE | 2021-02-12 20:38 | ECGEPIP ---
[facility] - ED Test Date: 2021-02-12 Pat Name: SEBASTIEN CHAVES Department: Room: - Gender: Male Consultants Intern: : 1965 Requested By: MATEO SMITH PA-C. Order Number: [id number] Reading MD: Samia Jiang Measurements Intervals [place] Rate: 88 P: 30 [place]: 150 QRS: -28 QRSD: 100 T: 72 QT: 430 QTc: 520 Interpretive Statements Normal sinus rhythm Minimal voltage criteria for LVH, may be normal variant ( [place] product ) Prolonged QT NSTTW abnormalities Electronically Signed on 02-12-2021 20:38:47 EDT by Samia Jiang
[2021-02-12] MEDS ORDERED: ASPIRIN 81MG ENTERIC TABLET PO PRN (20:45)
[2021-02-12] MEDS ORDERED: FLUTICASONE PROP 0.05% NASAL SPRAY 16 GM (FLONASE) NARES PRN (20:45)
[2021-02-12] MEDS ORDERED: MOM 30ML SUSPENSION UDC PO PRN (20:45)
[2021-02-12] MEDS ORDERED: MAALOX 30 ML SUSP *UDC PO PRN (20:45)
[2021-02-12] MEDS ORDERED: ACETAMINOPHEN TAB 650MG DOSE (2X325MG) PO PRN (20:45)
[2021-02-12] MEDS ORDERED: ATORVASTATIN 20 MG TAB PO SCH (21:00)
[2021-02-12 21:03] LABS: CK-MB VALUE MASS 5.1 NG/ML (<3.6); MAGNESIUM LEVEL 1.9 MG/DL (1.8-2.4); MB/CK RELATIVE INDEX 1.75 (< OR =4); TROPONIN I 0.05 NG/ML (< 0.10)
--- NOTE | 2021-02-12 22:03 | HPEPDOC ---
[facility] Medical History & Physical Date of Admission Feb 12, 2021 Date of Service: Feb 12, 2021 Attending Physician: HAYDEE RICHTER MD History and Physical CHIEF COMPLAINT: [55 y/o male presents to the ED after a syncopal episode] HISTORY OF PRESENT ILLNESS: [This is a 55 y/o male with a pmh of COPD, monet on cpap, anxiety, PTSD, htn who reports to our ED on 02/12 with a cc of a syncopal episode today when he was bending over to black pickler his dog's water bowl. Patient as well states that over the past two weeks, he has been experiencing recurrent headaches that he describes as "splitting" in his forehead and on top of his scalp that he believes are related to his high blood pressure. Patient states t hat when he gets headaches, he will check his blood pressure and always finds it high, at its highest being around 220 systolic. Patient states that he has gone to his PCP several times in the past two weeks for this and was started on 12.5mg of chlorthalidone daily. Patient admits that he checks his blood pressure several times a day when he has headaches and also admits that one day he even took 3 doses of his chlorthalidone to lower his BP. Patient states that he decided to come to the emergency department today after he passed out while bending over. Patient states that after the syncope, he fell into his recliner and did not hit his head. Patient also complained of some transient chest pressure upon presenting to the ED but states that this has spontaneously resolved. Patient, at the time of my exam, denies fevers, chills, current headache, vision changes, chest pain, palpitations, abd pain, n/v/d/c, pedal edema. ] PAST MEDICAL HISTORY: 1. [See HPI PAST SURGICAL HISTORY: 1. [B/l breast lipoma removal]. SOCIAL HISTORY: Tobacco use:[Denies] ETOH: [Denies] Illicit drug use: [Daily marijuana smoker] FAMILY HISTORY: Reviewed - none pertinent ALLERGIES: Please see below. REVIEW OF SYSTEMS: CONSTITUTIONAL: [Denies fevers, chills]. HEENT: [Denies uri sx]. CARDIOVASCULAR: [Denies chest pain, palpitations]. RESPIRATORY: [Denies sob, cough]. GASTROINTESTINAL: [Denies abd pain, n/v/d/c]. GENITOURINARY: [Denies dysuria]. SKIN: [Denies rash]. MUSCULOSKELETAL: [Denies acute joint/back pain]. NEUROLOGICAL: [See HPI]. PSYCHIATRIC: [Admits to anxiety, many recent life stressors]. ENDOCRINE: [Denies hx of DM]. HEMATOLOGIC/LYMPHATIC: [Denies easy bruising]. HOME MEDICATIONS: Please see below. PHYSICAL EXAMINATION: VITAL SIGNS: Please see below. GENERAL APPEARANCE: [This is a pleasant 55 y/o male who is alert and oriented to all questioning. Patient does not appear to be in any acute distress.]. HEENT: [No mass or lesion. EOMI. No scleral icterus. Nares patent. Oral mucosa moist]. CARDIOVASCULAR: [Regular rate, rhythm. No murmurs, rubs, gallops]. LUNGS: [Good air flow b/l. No wheezing, rales, rhonchi]. ABDOMEN: [Soft, nontender]. MUSCULOSKELETAL: [No joint deformity]. EXTREMITIES: [No pedal edema appreciated. Pulses intact. No overlying skin changes.]. NEUROLOGICAL: [Speech clear. Patient moves all fours freely. A+Ox3. No focal deficits]. PSYCHIATRIC: [Mood and affect appear appropriate]. LABORATORY DATA: See below. IMAGING: [CTA Chest: FINDINGS: Pulmonary arteries: There are no pulmonary emboli. Aorta: There is fusiform dilatation of the ascending thoracic aorta which measures 3.6 cm. maximally. There is no dissection or saccular component. Lungs: Small calcified granuloma left lower lobe; 5 mm noncalcified nodule right lung base. Lungs otherwise clear. Pleural spaces: Unremarkable. No pneumothorax. No pleural effusion. Heart: Unremarkable. No cardiomegaly. No pericardial effusion. Lymph nodes: Unremarkable. No enlarged lymph nodes. Bones/joints: The spine demonstrates mild degenerative changes. Soft tissues: Unremarkable. IMPRESSION: 1. 5 mm noncalcified nodule right lung base. For patients at low risk (minimal or absent history of smoking and of other known risk factors), no routine follow-up is indicated. For patients at high risk (history of smoking or of other known risk factors), consider optional CT Chest at 12 months. (Reference: Alda) 2. There is fusiform dilatation of the ascending thoracic aorta which measures 3.6 cm. maximally. There is no dissection or saccular component. 3. There are no pulmonary emboli. 4. No acute pulmonary parenchymal infiltrates. CXR: FINDINGS: There is no acute infiltrate or pulmonary edema. Lungs are clear. The heart is not significantly enlarged. The mediastinal silhouette is unremarkable. The visualized osseous structures are intact. IMPRESSION: No acute pulmonary disease. Head CT: FINDINGS: Brain: Normal. No hemorrhage. Unremarkable white matter. No mass effect. Cerebral ventricles: Cavum septum pellucidum. Ventricles otherwise unremarkable. Paranasal sinuses: Mild bilateral inflammatory changes in the ethmoid sinuses. Mastoid air cells: Visualized mastoid air cells are well aerated. Bones/joints: Unremarkable. No acute fracture. Soft tissues: Unremarkable. IMPRESSION: No acute findings.] MICROBIOLOGY: Please see below. ASSESSMENT: [This is a 55 y/o male with a pmh of COPD, monet on cpap, anxiety, PTSD, htn who reports to our ED on 02/12 with a cc of a syncopal episode today when he was bending over to black pickler his dog's water bowl. Patient as well states that over the past two weeks, he has been experiencing recurrent headaches that he describes as "splitting" in his forehead and on top of his scalp that he believes are related to his high blood pressure. Patient states that when he gets headaches, he will check his blood pressure and always finds it high, at i ts highest being around 220 systolic.]. . PLAN: 1. [Syncope - Vasovagal vs. orthostasis vs. dehydration - Patient's labs reflect significant dehydrations which is likely secondary to over medicating with chlorthalidone and some poor oral intake - Will check an orthostatic bp - Head CT in ed negative - Will check carotid doppler, echo w bubble study - Watch on telemetry overnight - Will give IVF - admit to med surg under obs 2. Labile HTN - Patient seems to be fixating on his bp and checking it very often. I discussed this with patient and explained to him that stress and anxiety about his blood pressure also causes high blood pressure. - Will switch chlorthalidone to amlodipine 3. Hypokalemia - Patient had k of 2.5 in the ed - secondary to dehydration, chlorthalidone - Replacement ordered - will recheck 4. COPD - patient not in acute exacerbation - continue at home inhalers 5. MONET - continue cpap 6. Anxiety - Patient states he feels his anxiety is well controlled with medical marijuana DVT prophylaxis - mechanical]. Vital Signs Vital Signs Date Time Temp Pulse Resp B/P (MAP) Pulse Ox O2 Delivery O2 Flow Rate FiO2 02/12/21 21:00 83 144/88 (106) 93 02/12/21 19:45 18 Room Air 02/12/21 16:30 98.5 Laboratory Data Labs 24H Laboratory Tests 2 02/12/21 17:28: Immature Granulocyte % (Auto) 0.5, Neutrophils (%) (Auto) 72.4H, Lymphocytes (%) (Auto) 19.8L, Monocytes (%) (Auto) 6.2, Eosinophils (%) (Auto) 0.5, Basophils (%) (Auto) 0.6, Neutrophils # (Auto) 13.5H, Lymphocytes # (Auto) 3.7, Monocytes # (Auto) 1.2H, Eosinophils # (Auto) 0.1, Basophils # (Auto) 0.1, Nucleated Red Blood Cells % (auto) 0.0, Magnesium Level 1.9, Total Creatine Kinase 329H, Cre atine Kinase MB 5.3H, Creatine Kinase MB Relative Index 1.61, Troponin I 0.03 02/12/21 17:51: Total Creatine Kinase 325H, Creatine Kinase MB 6.0H, Creatine Kinase MB Relative Index 1.85, Troponin I 0.04# 02/12/21 18:00: POC Glucose (Misc Panel) 162H, POC Sodium (Misc Panel) 139, POC Potassium (Misc Panel) 2.5*L, POC Chloride (Misc Panel) 94L, POC Total CO2 (Misc Panel) 27.0, POC Blood Urea Nitrogen (Misc Panel 30H, POC Ionized Calcium (Misc Panel) 4.9, P OC Creatinine (Misc Panel) 1.4H, POC Hematocrit (Misc Panel) 57.0H 02/12/21 19:25: Magnesium Level 1.9, Total Creatine Kinase 292, Creatine Kinase MB 5.1H, Creatine Kinase MB Relative Index 1.75, Troponin I 0.05#, Lactic Acid Level 1.3 02/12/21 21:23: CBC/BMP Laboratory Tests 02/12/21 17:28 Microbiology Microbiology 02/12/21 Blood Culture, Received Pending Home Medications Scheduled Atorvastatin Calcium (Atorvastatin Calcium) 40 Mg Tab, 40 MG PO QHS Budesonide/Formoterol (Symbicort 160-4.5 Mcg Inhaler) 60 Puff/Inhaler Aers, 2 PUFF INH BID Chlorthalidone (Chlorthalidone) 25 Mg Tablet, 12.5 MG PO DAILY Golimumab (Simponi) 50 Mg/0.5 Ml Inj, 50 MG SC QMONTH 5TH OF THE MONTH Mv-Mn/C/Glutamin/Lysin/Owsn177 (Airborne Gummies) 1 Each Tab.chew, 1 CHW PO DAILY Scheduled PRN Adapalene (Differin) 45 Gm Gel..gram., 1 DOSE TOP DAILY PRN for BREAKOUT Aspirin (Aspirin EC) 81 Mg Tablet.dr, 81 MG PO BID PRN for MILD PAIN (PS 1-4) Clindamycin Phosphate (Clindamycin Phosphate) 1% Med..swab, 1 DOSE TOP BID PRN for BREAKOUT APPLY TO AFFECTED AREA Fluticasone Propionate (Flonase Allergy Relief) 9.9 Ml [place].susp, 2 SPRAYS NARES DAILY PRN for ALLERGIES Sildenafil Citrate (Sildenafil Citrate) 50 Mg Tablet, 50 MG PO DAILY PRN for ERECTILE DYSFUNCTION Tacrolimus (Tacrolimus) 30 Gm Oint...g., 1 DOSE TOP QHS PRN for BREAKOUT APPLY TO AFFECTED AREA Allergies Coded Allergies: Penicillins (Verified Allergy, Intermediate, RASH, 06/02/19) celecoxib (Verified Allergy, Intermediate, HIVES, 06/02/19) PATIENT TAKES IBUPROFEN AT HOME meloxicam (Verified Allergy, Intermediate, RASH, 06/02/19) PATIENT TAKES IBUPROFEN AT HOME infliximab (Verified Adverse Reaction, Intermediate, SERUM SICKNESS, 06/02/19) A-FIB/CHADSVASC A-FIB History Current/History of A-Fib/PAF?: No EVELIO OLSON Feb 12, 2021 22:03
[2021-02-12 22:05] LABS: RSV AMPLIFICATION NEGATIVE (NEGATIVE)
--- NOTE | 2021-02-12 22:59 | REPVR ---
PROCEDURE INFORMATION: Exam: US Duplex Bilateral Extracranial Arteries Exam date and time: 02/12/2021 10:21 PM Age: 55 years old Clinical indication: Other: Syncope TECHNIQUE: Imaging protocol: Real-time Duplex ultrasound scan of the bilateral carotid and vertebral arteries combining de los santos scale, color Doppler and spectral waveform analysis. Bilateral exam. COMPARISON: CT Head without contrast 02/12/2021 6:46 PM FINDINGS: Right common carotid artery: The proximal right common carotid artery demonstrates normal Doppler waveforms and velocity of 85 cm/s, mid velocity of 72 cm/s and distal velocity of 62 cm/s. Right internal carotid artery: The right proximal internal carotid artery demonstrates velocity of 72 cm/s, mid velocity of 61 cm/s and distal velocity of 56 cm/s. Right ICA/CCA ratio: The right ICA/CCA ratio is 0.85. Right external carotid artery: The right external carotid artery demonstrates normal Doppler waveforms with velocity of 93 cm/s. Right vertebral artery: The right vertebral artery demonstrates antegrade flow with velocity of 36 cm/s. Left common carotid artery: The left proximal common carotid artery demonstrates normal Doppler waveforms with velocity of 74 cm/s, mid velocity of 96 cm/s and distal velocity 101 cm/s. Left internal carotid artery: The left proximal internal carotid artery demonstrates velocity of 42 cm/s, mid velocity of 28 cm/s and distal velocity of 28 cm/s. Left ICA/CCA ratio: The left ICA/CCA ratio is 0.41. Left external carotid artery: The left external carotid artery demonstrates velocity of 71 cm/s. Left vertebral artery: The left vertebral artery demonstrates antegrade flow with velocity of 27 cm/s. IMPRESSION: Negative carotid Doppler evaluation without evidence of hemodynamically significant stenosis. REFERENCES: SRU CRITERIA. The degree of internal carotid artery stenosis is based on criteria defined by the Society of Radiologists in Ultrasound (SRU). Normal is no stenosis. Mild is less than 50% stenosis. Moderate is 50-69% stenosis. Severe is greater than 69% stenosis to near occlusion. Near occlusion is a markedly narrowed lumen. Total occlusion is no detectable patent lumen. Electronically signed by: Eyal Jones On 02/12/2021 22:59:10 PM
[2021-02-12 23:55] VITALS: BP 156/100
[2021-02-13 00:55] LABS: BLOOD UREA NITROGEN 25 MG/DL (7-18); CALCIUM LEVEL 9.4 MG/DL (8.5-10.1); CARBON DIOXIDE LEVEL 23 MEQ/L (21-32); CHLORIDE LEVEL 103 MEQ/L (98-107); CREATININE FOR GFR 1.19 MG/DL (0.70-1.30); GLOMERULAR FILTRATION RATE > 60.0 (>56); GLUCOSE, FASTING 132 MG/DL (70-100); MAGNESIUM LEVEL 1.8 MG/DL (1.8-2.4); POTASSIUM SERUM 3.2 MEQ/L (3.5-5.1); SODIUM LEVEL 136 MEQ/L (136-145)
[2021-02-13] MEDS ORDERED: KCL 40MEQ in NS 1000ML 1,000 ML IV SCH (01:50)
[2021-02-13 03:00] VITALS: BP_SYST 150; BP_SYST 156; BP_DIAS 100; BP_DIAS 102; BP_DIAS 90
[2021-02-13 06:00] VITALS: BP 132/81
[2021-02-13 06:46] LABS: HEMATOCRIT 49.6 % (42.0-52.0); HEMOGLOBIN 17.6 g/dl (13.5-17.5); MEAN CORPUSCULAR HGB CONC 35.5 g/dl (32.0-36.5); MEAN CORPUSCULAR VOLUME 87.3 fl (80.0-96.0); PLATELET COUNT, AUTOMATED 281 10^3/uL (150-450); RED BLOOD COUNT 5.68 10^6/uL (4.30-6.10); WHITE BLOOD COUNT 17.8 10^3/uL (4.0-10.0)
[2021-02-13 07:19] LABS: BLOOD UREA NITROGEN 21 MG/DL (7-18); CALCIUM LEVEL 8.7 MG/DL (8.5-10.1); CARBON DIOXIDE LEVEL 27 MEQ/L (21-32); CHLORIDE LEVEL 103 MEQ/L (98-107); CK-MB VALUE MASS 5.8 NG/ML (<3.6); CPK CREATINE PHOSPHOKINASE 303 U/L (39-308); GLOMERULAR FILTRATION RATE > 60.0 (>56); GLUCOSE, FASTING 108 MG/DL (70-100); MAGNESIUM LEVEL 1.7 MG/DL (1.8-2.4); MB/CK RELATIVE INDEX 1.91 (< OR =4); POTASSIUM SERUM 3.5 MEQ/L (3.5-5.1); SODIUM LEVEL 137 MEQ/L (136-145); TROPONIN I 0.08 NG/ML (< 0.10)
[2021-02-13] MEDS ORDERED: AMLO1TAB24 PO (07:56)
[2021-02-13] MEDS: SYMBICORT 160/4.5MCG INHALER 6GM INH SCH (07:59)
[2021-02-13] MEDS ORDERED: POTASSIUM CHLORIDE 10 MEQ SR TABLET PO ONE (08:00)
[2021-02-13] MEDS ORDERED: amLODIPine 5 MG TAB PO SCH (09:00)
[2021-02-13 10:07] VITALS: BP 138/84
[2021-02-13 14:00] VITALS: BP 146/91
--- NOTE | 2021-02-13 14:33 | ECGEPIP ---
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
--- NOTE | 2021-02-13 23:03 | DS.PDOC ---
Discharge Summary General Date of Admission Feb 12, 2021 at 16:31 Date of Discharge Feb 13, 2021 Discharge Summary PROCEDURES PERFORMED DURING STAY: None ADMITTING DIAGNOSES: 1. Syncope 2. Labile hypertension 3. Hypokalemia secondary to diuretic 4. COPD 5. MONET 6. Anxiety DISCHARGE DIAGNOSES: 1. Syncope 2. Labile hypertension 3. Hypokalemia secondary to diuretic 4. COPD 5. MONET 6. Anxiety COMPLICATIONS/CHIEF COMPLAINT: Hypokalemia,Syncope And Collapse. HISTORY OF PRESENT ILLNESS: Copied from admitting provider's H&P " This is a 55 y/o male with a pmh of COPD, monet on cpap, anxiety, PTSD, htn who reports to our ED on 02/12 with a cc of a syncopal episode today when he was bending over to spanish moss picker his dog's water bowl. Patient as well states that over the past two weeks, he has been experiencing recurrent headaches that he describes as "splitting" in his forehead and on top of his scalp that he b elieves are related to his high blood pressure. Patient states that when he gets headaches, he will check his blood pressure and always finds it high, at its highest being around 220 systolic. Patient states that he has gone to his PCP several times in the past two weeks for this and was started on 12.5mg of chlorthalidone daily. Patient admits that he checks his blood pressure several times a day when he has headaches and also admits that one day he even took 3 doses of his chlorthalidone to lower his BP. Patient states that he decided to come to the emergency department today after he passed out while bending over. Patient states that after the syncope, he fell into his recliner and did not hit his head. Patient also complained of some transient chest pressure upon presenting to the ED but states that this has spontaneously resolved. Patient, at the time of my exam, denies fevers, chills, current headache, vision changes, chest pain, palpitations, abd pain, n/v/d/c, pedal edema. " HOSPITAL COURSE: Patient was given 5mg amlodipine and his blood pressure was well controlled without being too low or too high. He was given IV and PO potassium. This morning, he was feeling well. Denies any headache, chest pain, or dyspnea. I suspect patient's low potassium was from the chlorthalidone. His syncope may have been from taking too much chlorthalidone. Since patient was doing well on amlodipine, chlorthalidone was discontinued. No events were on telemetry. Echocardiogram was performed. Otherwise, of note, patient's had leukocytosis, but no signs of infection. Procalcitonin was negative. Peripheral smear unremarkable. Leukocytosis should be monitored outpatient. Otherwise, patient felt well and felt ready for home and was subsequently discharged home today. DISCHARGE MEDICATIONS: Please see below. ALLERGIES: Please see below. PHYSICAL EXAMINATION ON DISCHARGE: VITAL SIGNS: Please see below. GENERAL: Comfortable, in no apparent distress HEENT: Head normocephalic, atraumatic NECK: Supple CARDIOVASCULAR EXAMINATION: Regular rate and rhythm RESPIRATORY EXAMINATION: Lungs clear to auscultation bilaterally ABDOMINAL EXAMINATION: Soft, non-tender, normal bowel sounds EXTREMITIES: No pitting edema bilaterally SKIN: Warm and dry NEUROLOGICAL EXAMINATION: CN 3-12 grossly intact PSYCHIATRIC EXAMINATION: Normal mood and affect LABORATORY DATA: Please see below. IMAGING: Radiologist interpretation CT angio chest 1. 5 mm noncalcified nodule right lung base. For patients at low risk (minimal or absent history of smoking and of other known risk factors), no routine follow-up is indicated. For patients at high risk (history of smoking or of other known risk factors), consider optional CT Chest at 12 months. (Reference: Alda) 2. There is fusiform dilatation of the ascending thoracic aorta which measures 3.6 cm. maximally. There is no dissection or saccular component. 3. There are no pulmonary emboli. 4. No acute pulmonary parenchymal infiltrates. CT head without contrast No acute findings. US carotids Negative carotid Doppler evaluation without evidence of hemodynamically significant stenosis. PROGNOSIS: Good ACTIVITY: As tolerated. DIET: As tolerated DISCHARGE PLAN: Home DISPOSITION: 01 Home, Self-Care. DISCHARGE INSTRUCTIONS: 1. Follow up with PCP within 1 week ITEMS TO FOLLOWUP ON ON OUTPATIENT: 1. Echocardiogram results 2. Follow up on lung nodule seen on CT chest 3. Leukocytosis DISCHARGE CONDITION: Stable Total time spent on discharge planning, discharge summary, and medication reconciliation: 30 minutes Vital Signs/I&Os Vital Signs Date Time Temp Pulse Resp B/P (MAP) Pulse Ox O2 Delivery O2 Flow Rate FiO2 02/13/21 14:00 97.6 81 17 146/91 (109) 98 Room Air I&O- Last 24 Hours up to 6 AM 02/13/21 06:00 Intake Total 1240 ml Output Total 200 ml Balance 1040 ml Laboratory Data Labs 24H Laboratory Tests 2 02/13/21 00:20: Anion Gap 10, Glomerular Filtration Rate > 60.0, Calcium Level 9.4, Magnesium Level 1.8 02/13/21 06:24: Anion Gap 7L, Glomerular Filtration Rate > 60.0, Calcium Level 8.7, Magnesium Level 1.7L, Nucleated Red Blood Cells % (auto) 0.0, Differential Slide Review Report, Peripheral Blood Smear Path Consult PERIPHERAL SMEAR, Total Creatine Kinase 303, Creatine Kinase MB 5.8H, Creatine Kinase MB Relative Index 1.91, Troponin I 0.08#, Procalcitonin <0.05 02/13/21 06:29: Urine Color YELLOW, Urine Appearance CLEAR, Urine pH 5.0, Urine Specific Anderson 1.017, Urine Protein NEGATIVE, Urine Glucose (UA) NEGATIVE, Urine Ketones NEGATIVE, Urine Blood NEGATIVE, Urine Nitrite NEGATIVE, Urine Bilirubin NEGATIVE, Urine Urobilinogen 0.2, Urine Leukocyte Esterase NEGATIVE, Urine WBC (Auto) 1, Urine RBC (Auto) 1, Urine Hyaline Casts (Auto) 0, Urine Bacteria (Auto) NEGATIVE, Urine Squamous Epithelial Cells 0, Urine Mucus (Auto) SMALL, Urine Sperm (Auto) CBC/BMP Laboratory Tests 02/13/21 00:20 02/13/21 06:24 Microbiology Microbiology 02/12/21 Blood Culture - Preliminary, Resulted No growth after 24 hours . All specim... Discharge Medications Scheduled Amlodipine Besylate (Amlodipine Besylate) 5 Mg Tablet, 5 MG PO DAILY Atorvastatin Calcium (Atorvastatin Calcium) 40 Mg Tab, 40 MG PO QHS, (Reported) Budesonide/Formoterol (Symbicort 160-4.5 Mcg Inhaler) 60 Puff/Inhaler Aers, 2 PUFF INH BID, (Reported) Golimumab (Simponi) 50 Mg/0.5 Ml Inj, 50 MG SC QMONTH, (Reported) 5TH OF THE MONTH Mv-Mn/C/Glutamin/Lysin/Rlis071 (Airborne Gummies) 1 Each Tab.chew, 1 CHW PO DAILY, (Reported) Scheduled PRN Adapalene (Differin) 45 Gm Gel..gram., 1 DOSE TOP DAILY PRN for BREAKOUT, (Reported) Aspirin (Aspirin EC) 81 Mg Tablet.dr, 81 MG PO BID PRN for MILD PAIN (PS 1-4), (Reported) Clindamycin Phosphate (Clindamycin Phosphate) 1% Med..swab, 1 DOSE TOP BID PRN for BREAKOUT, (Reported) APPLY TO AFFECTED AREA Fluticasone Propionate (Flonase Allergy Relief) 9.9 Ml [place].susp, 2 SPRAYS NARES DAILY PRN for ALLERGIES, (Reported) Sildenafil Citrate (Sildenafil Citrate) 50 Mg Tablet, 50 MG PO DAILY PRN for ERECTILE DYSFUNCTION, (Reported) Tacrolimus (Tacrolimus) 30 Gm Oint...g., 1 DOSE TOP QHS PRN for BREAKOUT, (Reported) APPLY TO AFFECTED AREA Allergies Coded Allergies: Penicillins (Verified Allergy, Intermediate, RASH, 06/02/19) celecoxib (Verified Allergy, Intermediate, HIVES, 06/02/19) PATIENT TAKES IBUPROFEN AT HOME meloxicam (Verified Allergy, Intermediate, RASH, 06/02/19) PATIENT TAKES IBUPROFEN AT HOME infliximab (Verified Adverse Reaction, Intermediate, SERUM SICKNESS, 06/02/19) GRACY JOINER DO Feb 13, 2021 23:03
--- NOTE | 2021-02-15 13:19 | ECHO ---
ECHOCARDIOGRAM DATE OF PROCEDURE: 02/13/2021 Age: Gender: Height: 175 cm Weight: 100 kg REFERRING PHYSICIAN: Jeffrey Pereira physician programs assistant INDICATION: Syncope. 2D MEASUREMENTS: Ventricular septum 1.50 cm Posterior wall 1.38 cm Left ventricle diastole 3.6 cm Left atrium 4.1 cm Left atrial volume index 28 Aortic root 3.2 cm Proximal ascending aorta 3.6 cm Inferior vena cava 1.5 cm with more than 50% respiratory variation. DOPPLER MEASUREMENTS: No aortic stenosis. No aortic regurgitation. Aortic valve velocity 191 cm/s LVOT velocity 169 cm/s LVOT VTI 29.4 cm No mitral regurgitation. No mitral stenosis. Mitral E velocity 66.1 cm/s Mitral A velocity 81.4 cm/s Mitral deceleration time 280 msec No tricuspid regurgitation. No pulmonic regurgitation. Pulmonary acceleration time 160 msec MITRAL ANNUAL TISSUE DOPPLER: E prime septal 4.5 cm/s E prime lateral 7.9 cm/s DESCRIPTION: Rhythm was sinus. This was a moderately technically difficult echocardiogram. No pericardial effusion. This was a 2D, M-mode, color flow Doppler, and pulse wave Doppler examination and included mitral annular tissue Doppler. CONCLUSIONS: 1. Moderate concentric left ventricular hypertrophy. Hyperdynamic LV systolic function. LVEF 70%-75% by visual assessment. No regional LV wall motion abnormalities. Grade 1 LV diastolic dysfunction (impaired relaxation filling pattern). 2. Mild left atrial dilatation by left atrial volume index. 3. Mild aortic valve sclerosis of a 3-cuspid aortic valve. No aortic stenosis or regurgitation. 4. Normal right ventricle size with hyperdynamic right ventricle systolic function. 5. No pericardial effusion. 6. Otherwise normal-appearing echocardiogram Doppler findings.
== END 2021-02-13 16:45 | disposition home or self-care (01) ==
LOC: M ED 16:30 → M ED INP 16:31 → ENRESERV 23:33 → M MSPAV 23:54
PROVIDERS: ADMIT Internal Medicine; ATTEND Internal Medicine
DX: R55 Syncope and collapse (principal); I10 Essential (primary) hypertension; E87.6 Hypokalemia; J44.9 Chronic obstructive pulmonary disease, unspecified; G47.33 Obstructive sleep apnea (adult) (pediatric); F43.10 Post-traumatic stress disorder, unspecified; F41.9 Anxiety disorder, unspecified; Z79.899 Other long term (current) drug therapy; Z88.0 Allergy status to penicillin; Z88.8 Allergy status to other drugs, medicaments and biological substances
CPT/HCPCS: 36415; 70450; 71045; 71275; 80047; 80048; 81001; 82550; 82553; 83605; 83735; 84145; 84484; 85025; 85027; 87040; 87631; 93005; 93041; 93306; 93880; 94640; 94760; 96361; 96374; 99285; G0378; Q9967

== ENCOUNTER → 2021-03-13 | Outpatient (CLI) | payer MEDICARE ==
[~2021-03-13] MED LIST changes: +AIRB1CHW3 PO; +AMLO1TAB24 PO; +ASPI-161 PO; +CHLO125TA PO; +CLIN1PAD2 TOP; +SILD50TA2 PO; +TACR0.1O TOP; +[UNRECOGNIZED DRUG - OTHER] TOP
[2021-03-13 11:57] LABS: HEMATOCRIT 48.7 % (42.0-52.0); HEMOGLOBIN 16.4 g/dl (13.5-17.5); MEAN CORPUSCULAR HEMOGLOBIN 30.5 pg (27.0-33.0); MEAN CORPUSCULAR HGB CONC 33.7 g/dl (32.0-36.5); MEAN CORPUSCULAR VOLUME 90.7 fl (80.0-96.0); PLATELET COUNT, AUTOMATED 261 10^3/uL (150-450); RED BLOOD COUNT 5.37 10^6/uL (4.30-6.10); WHITE BLOOD COUNT 13.3 10^3/uL (4.0-10.0)
[2021-03-13 11:58] LABS: ALBUMIN 3.8 GM/DL (3.2-5.2); ALT/SGPT 52 U/L (12-78); BILIRUBIN,TOTAL 0.8 MG/DL (0.2-1.0); BLOOD UREA NITROGEN 15 MG/DL (7-18); CALCIUM LEVEL 9.5 MG/DL (8.5-10.1); CARBON DIOXIDE LEVEL 27 MEQ/L (21-32); CHLORIDE LEVEL 107 MEQ/L (98-107); CREATININE FOR GFR 0.97 MG/DL (0.70-1.30); GLOMERULAR FILTRATION RATE > 60.0 (>56); GLUCOSE, FASTING 117 MG/DL (70-100); POTASSIUM SERUM 4.3 MEQ/L (3.5-5.1); SODIUM LEVEL 141 MEQ/L (136-145)
== END ==
LOC: M LAB 10:02
PROVIDERS: ATTEND Physician Assistant
DX: D72.829 Elevated white blood cell count, unspecified (principal); D75.1 Secondary polycythemia; Z11.7 Encounter for testing for latent tuberculosis infection; I10 Essential (primary) hypertension

== ENCOUNTER → 2021-05-07 | Outpatient (CLI) | payer MEDICARE ==
[2021-05-07 12:01] LABS: BLOOD UREA NITROGEN 17 MG/DL (7-18); CALCIUM LEVEL 9.6 MG/DL (8.5-10.1); CARBON DIOXIDE LEVEL 26 MEQ/L (21-32); CHLORIDE LEVEL 110 MEQ/L (98-107); CREATININE FOR GFR 1.08 MG/DL (0.70-1.30); GLOMERULAR FILTRATION RATE > 60.0 (>56); GLUCOSE, FASTING 127 MG/DL (70-100); POTASSIUM SERUM 4.3 MEQ/L (3.5-5.1); SODIUM LEVEL 141 MEQ/L (136-145)
[2021-05-07 12:13] LABS: HEMOGLOBIN A1c 6.1 %
== END ==
LOC: M LAB 11:10
PROVIDERS: ATTEND Physician Assistant
DX: R73.03 Prediabetes (principal)

== ENCOUNTER → 2021-08-12 | Outpatient (CLI) | payer MEDICARE ==
[2021-08-12 11:13] LABS: BASO # 0.1 10^3/uL (0.0-0.2); BASO % 0.8 % (0.0-1.0); EOS # 0.4 10^3/uL (0.0-0.5); EOS % 3.3 % (0.0-3.0); HEMATOCRIT 48.7 % (42.0-52.0); HEMOGLOBIN 16.2 g/dl (13.5-17.5); LYMPH # 2.8 10^3/uL (1.5-5.0); LYMPH % 26.9 % (24.0-44.0); MEAN CORPUSCULAR HEMOGLOBIN 30.2 pg (27.0-33.0); MEAN CORPUSCULAR HGB CONC 33.3 g/dl (32.0-36.5); MEAN CORPUSCULAR VOLUME 90.9 fl (80.0-96.0); MONO % 9.5 % (2.0-8.0); NEUTROPHILS # 6.2 10^3/uL (1.5-8.5); NEUTROPHILS % 59.3 % (36.0-66.0); PLATELET COUNT, AUTOMATED 265 10^3/uL (150-450); RED BLOOD COUNT 5.36 10^6/uL (4.30-6.10); WHITE BLOOD COUNT 10.5 10^3/uL (4.0-10.0)
[2021-08-12 11:35] LABS: ALBUMIN 3.8 GM/DL (3.2-5.2); ALT/SGPT 56 U/L (12-78); BILIRUBIN,TOTAL 0.5 MG/DL (0.2-1.0); BLOOD UREA NITROGEN 12 MG/DL (7-18); CALCIUM LEVEL 9.4 MG/DL (8.5-10.1); CARBON DIOXIDE LEVEL 28 MEQ/L (21-32); CHLORIDE LEVEL 108 MEQ/L (98-107); CREATININE FOR GFR 1.19 MG/DL (0.70-1.30); GLOMERULAR FILTRATION RATE > 60.0 (>56); GLUCOSE, FASTING 128 MG/DL (70-100); POTASSIUM SERUM 3.9 MEQ/L (3.5-5.1); SODIUM LEVEL 141 MEQ/L (136-145)
[2021-08-12 11:43] LABS: ERYTHROCYTE SEDIMENTATION RATE 2 mm/hr (0-20)
== END ==
LOC: M LAB 10:06
PROVIDERS: ATTEND Internal Medicine Rheumatology
DX: M45.0 Ankylosing spondylitis of multiple sites in spine (principal)

== ENCOUNTER → 2021-08-14 | Outpatient (REF) | payer MEDICARE | LOC: M SFHCDERM 17:00 | PROVIDERS: ATTEND Physician Assistant | DX: L72.0 Epidermal cyst (principal) ==

== ENCOUNTER → 2021-08-14 | Outpatient (CLI) | payer MEDICARE ==
[2021-08-14 10:48] LABS: HEMATOCRIT 49.2 % (42.0-52.0); HEMOGLOBIN 16.5 g/dl (13.5-17.5); MEAN CORPUSCULAR HEMOGLOBIN 30.1 pg (27.0-33.0); MEAN CORPUSCULAR HGB CONC 33.5 g/dl (32.0-36.5); MEAN CORPUSCULAR VOLUME 89.8 fl (80.0-96.0); PLATELET COUNT, AUTOMATED 243 10^3/uL (150-450); RED BLOOD COUNT 5.48 10^6/uL (4.30-6.10); WHITE BLOOD COUNT 8.8 10^3/uL (4.0-10.0)
[2021-08-14 11:11] LABS: HEMOGLOBIN A1c 6.1 %
[2021-08-14 11:14] LABS: ALBUMIN 3.9 GM/DL (3.2-5.2); ALT/SGPT 63 U/L (12-78); BILIRUBIN,TOTAL 0.6 MG/DL (0.2-1.0); BLOOD UREA NITROGEN 18 MG/DL (7-18); CALCIUM LEVEL 9.3 MG/DL (8.5-10.1); CARBON DIOXIDE LEVEL 27 MEQ/L (21-32); CHLORIDE LEVEL 108 MEQ/L (98-107); CHOLESTEROL LEVEL 117 MG/DL (<200); CHOLESTEROL RISK RATIO 3.774 (<5); CREATININE FOR GFR 1.13 MG/DL (0.70-1.30); GLOMERULAR FILTRATION RATE > 60.0 (>56); GLUCOSE, FASTING 115 MG/DL (70-100); HDL CHOLESTEROL 31 MG/DL (>40); LDL CHOLESTEROL 62 MG/DL (<100); NON-HDL-C 86 MG/DL; POTASSIUM SERUM 4.2 MEQ/L (3.5-5.1); SODIUM LEVEL 142 MEQ/L (136-145); TOTAL PROTEIN 6.8 GM/DL (6.4-8.2); TRIGLYCERIDES LEVEL 120 MG/DL (<150)
== END ==
LOC: M LAB 09:34
PROVIDERS: ATTEND Physician Assistant
DX: R73.03 Prediabetes (principal); Z79.899 Other long term (current) drug therapy

== ENCOUNTER → 2021-11-05 | Outpatient (CLI) | payer MEDICARE | LOC: M PLAIMG 10:24 | PROVIDERS: ATTEND Internal Medicine Pulmonary Disease | DX: R91.8 Other nonspecific abnormal finding of lung field (principal) ==

== ENCOUNTER → 2021-11-06 | Outpatient (REF) | payer MEDICARE | LOC: M LAB REF 08:08 | PROVIDERS: ATTEND Surgery | DX: D21.0 Benign neoplasm of connective and other soft tissue of head, face and neck (principal) ==

== ENCOUNTER → 2022-02-13 | Outpatient (CLI) | payer MEDICARE ==
[2022-02-13 16:47] LABS: BLOOD UREA NITROGEN 20 MG/DL (7-18); CALCIUM LEVEL 9.3 MG/DL (8.5-10.1); CARBON DIOXIDE LEVEL 29 MEQ/L (21-32); CHLORIDE LEVEL 108 MEQ/L (98-107); CREATININE FOR GFR 1.07 MG/DL (0.70-1.30); GLOMERULAR FILTRATION RATE > 60.0 (>56); GLUCOSE, FASTING 109 MG/DL (70-100); SODIUM LEVEL 141 MEQ/L (136-145)
[2022-02-13 17:31] LABS: TOTAL 25(OH) VITAMIN D 30.5 NG/ML (30.0-100.0)
== END ==
LOC: M LAB 14:21
PROVIDERS: ATTEND Physician Assistant
DX: E55.9 Vitamin D deficiency, unspecified (principal); I10 Essential (primary) hypertension; Z79.899 Other long term (current) drug therapy

== ENCOUNTER → 2022-02-13 | Outpatient (CLI) | payer MEDICARE ==
[2022-02-13 15:29] LABS: BASO # 0.1 10^3/uL (0.0-0.2); BASO % 0.4 % (0.0-1.0); EOS # 0.3 10^3/uL (0.0-0.5); EOS % 1.9 % (0.0-3.0); HEMATOCRIT 46.7 % (42.0-52.0); HEMOGLOBIN 15.7 g/dl (13.5-17.5); LYMPH # 5.4 10^3/uL (1.5-5.0); LYMPH % 32.6 % (24.0-44.0); MEAN CORPUSCULAR HEMOGLOBIN 30.6 pg (27.0-33.0); MEAN CORPUSCULAR HGB CONC 33.6 g/dl (32.0-36.5); MONO % 6.2 % (2.0-8.0); NEUTROPHILS # 9.6 10^3/uL (1.5-8.5); NEUTROPHILS % 58.4 % (36.0-66.0); PLATELET COUNT, AUTOMATED 252 10^3/uL (150-450); RED BLOOD COUNT 5.13 10^6/uL (4.30-6.10); WHITE BLOOD COUNT 16.5 10^3/uL (4.0-10.0)
[2022-02-13 16:30] LABS: ERYTHROCYTE SEDIMENTATION RATE 2 mm/hr (0-20)
[2022-02-13 16:51] LABS: ALBUMIN 3.4 GM/DL (3.2-5.2); ALT/SGPT 55 U/L (12-78); BILIRUBIN,TOTAL 0.9 MG/DL (0.2-1.0); BLOOD UREA NITROGEN 20 MG/DL (7-18); CALCIUM LEVEL 9.3 MG/DL (8.5-10.1); CARBON DIOXIDE LEVEL 29 MEQ/L (21-32); CHLORIDE LEVEL 108 MEQ/L (98-107); CREATININE FOR GFR 1.07 MG/DL (0.70-1.30); GLOMERULAR FILTRATION RATE > 60.0 (>56); GLUCOSE, FASTING 107 MG/DL (70-100); SODIUM LEVEL 142 MEQ/L (136-145); TOTAL PROTEIN 6.5 GM/DL (6.4-8.2)
== END ==
LOC: M LAB 14:19
PROVIDERS: ATTEND Internal Medicine Rheumatology
DX: M45.0 Ankylosing spondylitis of multiple sites in spine (principal); Z79.899 Other long term (current) drug therapy; M89.49 Other hypertrophic osteoarthropathy, multiple sites; R21 Rash and other nonspecific skin eruption

== ENCOUNTER 2022-03-24 12:25 | Emergency (ER) | payer MEDICARE ==
[~2022-03-24] VITALS: Ht 175.3 cm; Wt 97.3 kg
[2022-03-24 14:34] VITALS: O2SAT 99
[2022-03-24] MEDS ORDERED: methylPREDNISolone 125MG 2ML VIAL IV ONE (14:45)
[2022-03-24] MEDS ORDERED: NS 1,000 ML IV ONE (14:45)
[2022-03-24] MEDS ORDERED: ALBUTEROL 90 MCG/ACT 8GM HFA INHALER INH ONE (14:45)
[2022-03-24 15:37] LABS: BASO # 0.1 10^3/uL (0.0-0.2); BASO % 0.5 % (0.0-1.0); EOS # 0.2 10^3/uL (0.0-0.5); EOS % 1.8 % (0.0-3.0); HEMATOCRIT 47.2 % (42.0-52.0); HEMOGLOBIN 16.1 g/dl (13.5-17.5); LYMPH # 3.2 10^3/uL (1.5-5.0); MEAN CORPUSCULAR HEMOGLOBIN 30.5 pg (27.0-33.0); MEAN CORPUSCULAR HGB CONC 34.1 g/dl (32.0-36.5); MEAN CORPUSCULAR VOLUME 89.4 fl (80.0-96.0); MONO # 0.8 10^3/uL (0.0-0.8); MONO % 5.9 % (2.0-8.0); NEUTROPHILS # 8.8 10^3/uL (1.5-8.5); NEUTROPHILS % 67.3 % (36.0-66.0); PLATELET COUNT, AUTOMATED 263 10^3/uL (150-450); RED BLOOD COUNT 5.28 10^6/uL (4.30-6.10); WHITE BLOOD COUNT 13.1 10^3/uL (4.0-10.0)
[2022-03-24 15:48] LABS: INR 0.91; PROTHROMBIN TIME 12.7 SECONDS (12.7-14.5)
[2022-03-24 16:07] LABS: CK-MB VALUE MASS 2.9 NG/ML (<3.6); MB/CK RELATIVE INDEX 2.21 (< OR =4)
[2022-03-24 16:13] LABS: ALT/SGPT 41 U/L (12-78); BILIRUBIN,DIRECT 0.1 MG/DL (0.0-0.2); BILIRUBIN,TOTAL 0.6 MG/DL (0.2-1.0); BLOOD UREA NITROGEN 16 MG/DL (7-18); CALCIUM LEVEL 9.5 MG/DL (8.5-10.1); CARBON DIOXIDE LEVEL 27 MEQ/L (21-32); CHLORIDE LEVEL 107 MEQ/L (98-107); CREATININE FOR GFR 0.95 MG/DL (0.70-1.30); GLOMERULAR FILTRATION RATE > 60.0 (>56); GLUCOSE, FASTING 99 MG/DL (70-100); NT-PRO BNP 359 PG/ML (<125); POTASSIUM SERUM 4.2 MEQ/L (3.5-5.1); SODIUM LEVEL 139 MEQ/L (136-145); TOTAL PROTEIN 7.4 GM/DL (6.4-8.2)
[2022-03-24] MEDS ORDERED: ISOVUE-370 76% 100ML VIAL As Ordered ONE (16:20)
[2022-03-24 17:10] LABS: CK-MB VALUE MASS 2.5 NG/ML (<3.6); MB/CK RELATIVE INDEX 2.07 (< OR =4)
[2022-03-24 17:46] VITALS: BP 135/84
[2022-03-24] MEDS ORDERED: VENTAER INH (19:43)
== END 2022-03-24 19:58 | disposition home or self-care (01) ==
LOC: M ED 12:25
DX: J44.1 Chronic obstructive pulmonary disease with (acute) exacerbation (principal); J98.11 Atelectasis; E78.5 Hyperlipidemia, unspecified; I10 Essential (primary) hypertension; G47.33 Obstructive sleep apnea (adult) (pediatric); F43.10 Post-traumatic stress disorder, unspecified; J45.909 Unspecified asthma, uncomplicated; M54.50 Low back pain, unspecified; F17.200 Nicotine dependence, unspecified, uncomplicated; Z86.79 Personal history of other diseases of the circulatory system; Z79.51 Long term (current) use of inhaled steroids; Z79.82 Long term (current) use of aspirin; Z79.899 Other long term (current) drug therapy; Z88.0 Allergy status to penicillin; Z88.9 Allergy status to unspecified drugs, medicaments and biological substances
CPT/HCPCS: 71046; 71275; 80048; 80076; 82550; 82553; 83605; 83880; 84484; 85025; 85610; 87040; 87077; 87186; 87486; 87581; 87633; 87798; 93005; 94640; 96361; 96374; 99284; J2930; Q9967

== ENCOUNTER → 2022-07-20 | Outpatient (CLI) | payer MEDICARE ==
[~2022-07-20] MED LIST changes: -DOXY-350 PO; +DOXY-444 PO; +VENTAER INH
[2022-07-20 15:23] LABS: BASO # 0.1 10^3/uL (0.0-0.2); BASO % 0.7 % (0.0-1.0); EOS # 0.4 10^3/uL (0.0-0.5); EOS % 3.4 % (0.0-3.0); HEMATOCRIT 50.5 % (42.0-52.0); HEMOGLOBIN 16.8 g/dl (13.5-17.5); LYMPH # 3.4 10^3/uL (1.5-5.0); LYMPH % 31.1 % (24.0-44.0); MEAN CORPUSCULAR HEMOGLOBIN 30.5 pg (27.0-33.0); MEAN CORPUSCULAR HGB CONC 33.3 g/dl (32.0-36.5); MEAN CORPUSCULAR VOLUME 91.7 fl (80.0-96.0); MONO # 0.8 10^3/uL (0.0-0.8); MONO % 7.2 % (2.0-8.0); NEUTROPHILS # 6.3 10^3/uL (1.5-8.5); NEUTROPHILS % 57.1 % (36.0-66.0); PLATELET COUNT, AUTOMATED 349 10^3/uL (150-450); RED BLOOD COUNT 5.51 10^6/uL (4.30-6.10)
[2022-07-20 15:36] LABS: ERYTHROCYTE SEDIMENTATION RATE 9 mm/hr (0-20)
[2022-07-20 15:45] LABS: C REACTIVE PROTEIN QUANTITATIV < 0.40 MG/DL (<1.0)
[2022-07-20 15:46] LABS: ALKALINE PHOSPHATASE 70 U/L (46-116); ALT/SGPT 68 U/L (7.0-40); AST/SGOT 38 U/L (<34); BILIRUBIN,TOTAL 0.9 MG/DL (0.3-1.2); BLOOD UREA NITROGEN 15 MG/DL (9-23); CALCIUM LEVEL 9.4 MG/DL (8.5-10.1); CARBON DIOXIDE LEVEL 29 MMOL/L (20-31); CHLORIDE LEVEL 104 MMOL/L (98-107); CREATININE FOR GFR 0.97 MG/DL (0.70-1.30); GLOMERULAR FILTRATION RATE > 60.0 (>56); GLUCOSE, FASTING 165 MG/DL (60-100); POTASSIUM SERUM 4.5 MMOL/L (3.5-5.1); SODIUM LEVEL 141 MMOL/L (136-145); TOTAL PROTEIN 7.4 G/DL (5.7-8.2)
== END ==
LOC: M LAB 13:38
PROVIDERS: ATTEND Internal Medicine Rheumatology
DX: M45.0 Ankylosing spondylitis of multiple sites in spine (principal); M89.49 Other hypertrophic osteoarthropathy, multiple sites; R21 Rash and other nonspecific skin eruption; Z79.899 Other long term (current) drug therapy

== ENCOUNTER → 2022-08-24 | Outpatient (CLI) | payer MEDICARE ==
[2022-08-24 11:05] LABS: BASO # 0.1 10^3/uL (0.0-0.2); BASO % 0.6 % (0.0-1.0); EOS # 0.4 10^3/uL (0.0-0.5); EOS % 3.2 % (0.0-3.0); HEMATOCRIT 48.8 % (42.0-52.0); HEMOGLOBIN 16.6 g/dl (13.5-17.5); LYMPH # 3.4 10^3/uL (1.5-5.0); LYMPH % 25.7 % (24.0-44.0); MEAN CORPUSCULAR HEMOGLOBIN 30.9 pg (27.0-33.0); MEAN CORPUSCULAR VOLUME 90.7 fl (80.0-96.0); MONO # 0.9 10^3/uL (0.0-0.8); MONO % 7.1 % (2.0-8.0); NEUTROPHILS # 8.4 10^3/uL (1.5-8.5); NEUTROPHILS % 63.1 % (36.0-66.0); PLATELET COUNT, AUTOMATED 264 10^3/uL (150-450); RED BLOOD COUNT 5.38 10^6/uL (4.30-6.10); WHITE BLOOD COUNT 13.2 10^3/uL (4.0-10.0)
[2022-08-24 11:18] LABS: ERYTHROCYTE SEDIMENTATION RATE 6 mm/hr (0-20)
[2022-08-24 11:35] LABS: C REACTIVE PROTEIN QUANTITATIV < 0.40 MG/DL (<1.0)
[2022-08-24 11:41] LABS: ALBUMIN 3.9 G/DL (3.2-5.2); ALKALINE PHOSPHATASE 69 U/L (46-116); ALT/SGPT 59 U/L (7.0-40); AST/SGOT 31 U/L (<34); BILIRUBIN,TOTAL 1.1 MG/DL (0.3-1.2); BLOOD UREA NITROGEN 13 MG/DL (9-23); CALCIUM LEVEL 8.9 MG/DL (8.5-10.1); CARBON DIOXIDE LEVEL 27 MMOL/L (20-31); CHLORIDE LEVEL 107 MMOL/L (98-107); CREATININE FOR GFR 0.97 MG/DL (0.70-1.30); GLOMERULAR FILTRATION RATE > 60.0 (>56); GLUCOSE, FASTING 142 MG/DL (60-100); POTASSIUM SERUM 4.2 MMOL/L (3.5-5.1); SODIUM LEVEL 141 MMOL/L (136-145); TOTAL PROTEIN 6.8 G/DL (5.7-8.2)
== END ==
LOC: M LAB 10:47
PROVIDERS: ATTEND Internal Medicine Rheumatology
DX: M45.0 Ankylosing spondylitis of multiple sites in spine (principal); M89.49 Other hypertrophic osteoarthropathy, multiple sites; R21 Rash and other nonspecific skin eruption; Z79.899 Other long term (current) drug therapy

== ENCOUNTER → 2022-08-24 | Outpatient (REF) | payer MEDICARE ==
[2022-08-24 13:27] LABS: CHOLESTEROL LEVEL 113 MG/DL (<200); CHOLESTEROL RISK RATIO 3.59 (<5); HDL CHOLESTEROL 31.4 MG/DL (>40); LDL CHOLESTEROL 61.8 MG/DL (<100); NON-HDL-C 82 MG/DL; TRIGLYCERIDES LEVEL 99 MG/DL (<150)
[2022-08-24 13:28] LABS: THYROID STIMULATING HORMONE 1.125 uIU/ML (0.55-4.78)
[2022-08-24 13:57] LABS: HIV 1&2 SCREEN CENTAUR NEGATIVE (NEGATIVE)
[2022-08-24 14:05] LABS: HEPATITIS C VIRUS ABY INDEX < 0.0 INDEX (<0.8)
[2022-08-24 18:39] LABS: HEMOGLOBIN A1c 8.2 % (4.0-6.0)
== END ==
LOC: M LAB 13:00
PROVIDERS: ATTEND Physician Assistant
DX: R73.03 Prediabetes (principal); Z11.59 Encounter for screening for other viral diseases; Z11.4 Encounter for screening for human immunodeficiency virus [HIV]; M45.0 Ankylosing spondylitis of multiple sites in spine; M89.49 Other hypertrophic osteoarthropathy, multiple sites; R21 Rash and other nonspecific skin eruption; Z79.899 Other long term (current) drug therapy

== ENCOUNTER → 2022-11-20 | Outpatient (REF) | payer MEDICARE, MEDICAID ==
[2022-11-20 17:56] LABS: MALB URINE SIEMENS < 3.0 MG/L; MAU/CREAT RATIO 3.4 MCG/MG (0.0-30.0)
== END ==
LOC: M LAB REF 16:24
PROVIDERS: ATTEND Physician Assistant
DX: E11.9 Type 2 diabetes mellitus without complications (principal)

== ENCOUNTER → 2022-11-26 | Outpatient (CLI) | payer MEDICARE, MEDICAID ==
[2022-11-26 13:27] LABS: BASO # 0.1 10^3/uL (0.0-0.2); BASO % 0.7 % (0.0-1.0); EOS # 0.2 10^3/uL (0.0-0.5); EOS % 1.8 % (0.0-3.0); HEMATOCRIT 46.6 % (42.0-52.0); HEMOGLOBIN 16.1 g/dl (13.5-17.5); LYMPH # 2.9 10^3/uL (1.5-5.0); LYMPH % 22.3 % (24.0-44.0); MEAN CORPUSCULAR HEMOGLOBIN 30.6 pg (27.0-33.0); MEAN CORPUSCULAR HGB CONC 34.5 g/dl (32.0-36.5); MEAN CORPUSCULAR VOLUME 88.4 fl (80.0-96.0); MONO # 0.8 10^3/uL (0.0-0.8); MONO % 6.3 % (2.0-8.0); NEUTROPHILS # 8.9 10^3/uL (1.5-8.5); NEUTROPHILS % 68.5 % (36.0-66.0); PLATELET COUNT, AUTOMATED 264 10^3/uL (150-450); RED BLOOD COUNT 5.27 10^6/uL (4.30-6.10)
[2022-11-26 13:46] LABS: ERYTHROCYTE SEDIMENTATION RATE 7 mm/hr (0-20)
[2022-11-26 13:50] LABS: C REACTIVE PROTEIN QUANTITATIV < 0.40 MG/DL (<1.0)
[2022-11-26 13:52] LABS: ALBUMIN 4.1 G/DL (3.2-5.2); ALKALINE PHOSPHATASE 60 U/L (46-116); ALT/SGPT 54 U/L (7.0-40); AST/SGOT 31 U/L (<34); BLOOD UREA NITROGEN 16 MG/DL (9-23); CALCIUM LEVEL 9.5 MG/DL (8.5-10.1); CARBON DIOXIDE LEVEL 28 MMOL/L (20-31); CHLORIDE LEVEL 106 MMOL/L (98-107); GLOMERULAR FILTRATION RATE > 60.0 (>56); GLUCOSE, FASTING 112 MG/DL (60-100); SODIUM LEVEL 141 MMOL/L (136-145); TOTAL PROTEIN 6.8 G/DL (5.7-8.2)
== END ==
LOC: M LAB 13:05
PROVIDERS: ATTEND Internal Medicine Rheumatology
DX: M45.0 Ankylosing spondylitis of multiple sites in spine (principal); M89.49 Other hypertrophic osteoarthropathy, multiple sites; R21 Rash and other nonspecific skin eruption; Z79.899 Other long term (current) drug therapy

== ENCOUNTER → 2023-03-15 | Outpatient (CLI) | payer MEDICARE, MEDICAID | LOC: M SOG 08:09 | PROVIDERS: ATTEND Physician Assistant | DX: M25.531 Pain in right wrist (principal); M25.532 Pain in left wrist ==

== ENCOUNTER → 2023-03-31 | Outpatient (CLI) | payer MEDICARE, MEDICAID ==
[~2023-03-31] MED LIST changes: +AMLO1TAB25 PO
== END ==
LOC: M RAD 13:29
PROVIDERS: ATTEND Internal Medicine Pulmonary Disease
DX: Z12.2 Encounter for screening for malignant neoplasm of respiratory organs (principal); F17.218 Nicotine dependence, cigarettes, with other nicotine-induced disorders

== ENCOUNTER → 2023-04-07 | Outpatient (CLI) | payer MEDICARE, MEDICAID ==
[2023-04-07 13:48] LABS: BASO # 0.1 10^3/uL (0.0-0.2); BASO % 0.6 % (0.0-1.0); EOS # 0.4 10^3/uL (0.0-0.5); EOS % 3.1 % (0.0-3.0); HEMATOCRIT 49.7 % (42.0-52.0); HEMOGLOBIN 17.2 g/dl (13.5-17.5); LYMPH % 20.9 % (24.0-44.0); MEAN CORPUSCULAR HEMOGLOBIN 30.9 pg (27.0-33.0); MEAN CORPUSCULAR HGB CONC 34.6 g/dl (32.0-36.5); MEAN CORPUSCULAR VOLUME 89.4 fl (80.0-96.0); MONO % 7.1 % (2.0-8.0); NEUTROPHILS # 9.6 10^3/uL (1.5-8.5); NEUTROPHILS % 67.9 % (36.0-66.0); PLATELET COUNT, AUTOMATED 269 10^3/uL (150-450); RED BLOOD COUNT 5.56 10^6/uL (4.30-6.10); WHITE BLOOD COUNT 14.2 10^3/uL (4.0-10.0)
[2023-04-07 14:23] LABS: BLOOD UREA NITROGEN 15 MG/DL (9-23); CALCIUM LEVEL 9.3 MG/DL (8.5-10.1); CARBON DIOXIDE LEVEL 29 MMOL/L (20-31); CHLORIDE LEVEL 110 MMOL/L (98-107); CHOLESTEROL LEVEL 121 MG/DL (<200); CHOLESTEROL RISK RATIO 3.76 (<5); CREATININE FOR GFR 0.88 MG/DL (0.70-1.30); GLOMERULAR FILTRATION RATE > 60.0 (>56); GLUCOSE, FASTING 168 MG/DL (60-100); HDL CHOLESTEROL 32.1 MG/DL (>40); LDL CHOLESTEROL 74.1 MG/DL (<100); NON-HDL-C 88.9 MG/DL; POTASSIUM SERUM 4.4 MMOL/L (3.5-5.1); SODIUM LEVEL 146 MMOL/L (136-145); TRIGLYCERIDES LEVEL 74 MG/DL (<150)
[2023-04-07 14:25] LABS: THYROID STIMULATING HORMONE 1.198 uIU/ML (0.55-4.78)
== END ==
LOC: M LAB 13:23
PROVIDERS: ATTEND Nurse Practitioner Family
DX: Z01.818 Encounter for other preprocedural examination (principal); Z79.899 Other long term (current) drug therapy

== ENCOUNTER → 2023-04-23 | Outpatient (CLI) | payer MEDICARE, MEDICAID ==
[2023-04-23 10:33] LABS: BASO # 0.1 10^3/uL (0.0-0.2); BASO % 0.8 % (0.0-1.0); EOS # 0.6 10^3/uL (0.0-0.5); HEMATOCRIT 48.6 % (42.0-52.0); HEMOGLOBIN 16.4 g/dl (13.5-17.5); LYMPH # 3.5 10^3/uL (1.5-5.0); LYMPH % 24.8 % (24.0-44.0); MEAN CORPUSCULAR HEMOGLOBIN 30.3 pg (27.0-33.0); MEAN CORPUSCULAR HGB CONC 33.7 g/dl (32.0-36.5); MEAN CORPUSCULAR VOLUME 89.7 fl (80.0-96.0); MONO # 0.8 10^3/uL (0.0-0.8); PLATELET COUNT, AUTOMATED 227 10^3/uL (150-450); RED BLOOD COUNT 5.42 10^6/uL (4.30-6.10)
[2023-04-23 10:59] LABS: BLOOD UREA NITROGEN 18 MG/DL (9-23); CALCIUM LEVEL 9.1 MG/DL (8.5-10.1); CARBON DIOXIDE LEVEL 25 MMOL/L (20-31); CHLORIDE LEVEL 110 MMOL/L (98-107); CHOLESTEROL LEVEL 138 MG/DL (<200); CHOLESTEROL RISK RATIO 3.85 (<5); CREATININE FOR GFR 1.01 MG/DL (0.70-1.30); GLOMERULAR FILTRATION RATE > 60.0 (>56); GLUCOSE, FASTING 180 MG/DL (60-100); HDL CHOLESTEROL 35.8 MG/DL (>40); LDL CHOLESTEROL 76.6 MG/DL (<100); NON-HDL-C 102.2 MG/DL; POTASSIUM SERUM 4.2 MMOL/L (3.5-5.1); SODIUM LEVEL 143 MMOL/L (136-145); TRIGLYCERIDES LEVEL 128 MG/DL (<150)
[2023-04-23 11:01] LABS: THYROID STIMULATING HORMONE 1.566 uIU/ML (0.55-4.78); TOTAL 25(OH) VITAMIN D 26.1 NG/ML (20.0-100.0)
== END ==
LOC: M LAB 09:55
PROVIDERS: ATTEND Nurse Practitioner Family
DX: Z01.818 Encounter for other preprocedural examination (principal); E78.5 Hyperlipidemia, unspecified; E55.9 Vitamin D deficiency, unspecified; Z79.899 Other long term (current) drug therapy

== ENCOUNTER → 2023-06-03 | Outpatient (CLI) | payer MEDICARE, MEDICAID ==
[2023-06-03 10:34] LABS: BASO # 0.1 10^3/uL (0.0-0.2); BASO % 0.6 % (0.0-1.0); EOS # 0.6 10^3/uL (0.0-0.5); HEMATOCRIT 48.3 % (42.0-52.0); LYMPH # 3.1 10^3/uL (1.5-5.0); LYMPH % 21.7 % (24.0-44.0); MEAN CORPUSCULAR HEMOGLOBIN 30.2 pg (27.0-33.0); MEAN CORPUSCULAR HGB CONC 33.1 g/dl (32.0-36.5); MEAN CORPUSCULAR VOLUME 91.1 fl (80.0-96.0); MONO # 1.1 10^3/uL (0.0-0.8); MONO % 7.8 % (2.0-8.0); NEUTROPHILS # 9.3 10^3/uL (1.5-8.5); NEUTROPHILS % 65.5 % (36.0-66.0); PLATELET COUNT, AUTOMATED 246 10^3/uL (150-450); WHITE BLOOD COUNT 14.2 10^3/uL (4.0-10.0)
[2023-06-03 10:57] LABS: ERYTHROCYTE SEDIMENTATION RATE 7 mm/hr (0-20)
[2023-06-03 11:23] LABS: C REACTIVE PROTEIN QUANTITATIV < 0.40 MG/DL (<1.0)
[2023-06-03 11:25] LABS: ALBUMIN 3.9 G/DL (3.2-5.2); ALKALINE PHOSPHATASE 65 U/L (46-116); ALT/SGPT 55 U/L (7.0-40); AST/SGOT 23 U/L (<34); BILIRUBIN,TOTAL 0.6 MG/DL (0.3-1.2); BLOOD UREA NITROGEN 14 MG/DL (9-23); CALCIUM LEVEL 9.2 MG/DL (8.5-10.1); CARBON DIOXIDE LEVEL 27 MMOL/L (20-31); CHLORIDE LEVEL 109 MMOL/L (98-107); GLOMERULAR FILTRATION RATE > 60.0 (>56); GLUCOSE, FASTING 177 MG/DL (60-100); SODIUM LEVEL 141 MMOL/L (136-145); TOTAL PROTEIN 6.7 G/DL (5.7-8.2)
== END ==
LOC: M LAB 10:01
PROVIDERS: ATTEND Internal Medicine Rheumatology
DX: M45.0 Ankylosing spondylitis of multiple sites in spine (principal); M89.49 Other hypertrophic osteoarthropathy, multiple sites; R21 Rash and other nonspecific skin eruption; Z79.899 Other long term (current) drug therapy

== ENCOUNTER → 2023-08-24 | Outpatient (CLI) | payer MEDICARE, MEDICAID ==
[~2023-08-24] MED LIST changes: -ASPI-161 PO; +ASPI-615 PO
== END ==
LOC: M RAD 09:48
PROVIDERS: ATTEND Physician Assistant
DX: K76.0 Fatty (change of) liver, not elsewhere classified (principal); E78.5 Hyperlipidemia, unspecified; R94.5 Abnormal results of liver function studies

== ENCOUNTER → 2023-09-29 | Outpatient (CLI) | payer MEDICARE, MEDICAID | LOC: M EKG 12:47 | PROVIDERS: ATTEND Physician Assistant | DX: R00.1 Bradycardia, unspecified (principal) ==

== ENCOUNTER → 2023-12-06 | Outpatient (REF) | payer MEDICARE, MEDICAID ==
[~2023-12-06] MED LIST changes: +DOXY-440 PO; -DOXY-444 PO
[2023-12-06 17:49] LABS: CREATININE, URINE 108.1 MG/DL
[2023-12-06 17:50] LABS: MAU/CREAT RATIO 3.7 MCG/MG (0.0-30.0)
== END ==
LOC: M LAB REF 16:36
PROVIDERS: ATTEND Physician Assistant
DX: E11.9 Type 2 diabetes mellitus without complications (principal)

== ENCOUNTER → 2024-01-18 | Outpatient (CLI) | payer MEDICARE, MEDICAID ==
[2024-01-18 12:36] LABS: BASO # 0.1 10^3/uL (0.0-0.2); BASO % 0.7 % (0.0-1.0); EOS # 0.4 10^3/uL (0.0-0.5); EOS % 3.4 % (0.0-3.0); HEMATOCRIT 45.3 % (42.0-52.0); HEMOGLOBIN 15.1 g/dl (13.5-17.5); LYMPH % 25.3 % (24.0-44.0); MEAN CORPUSCULAR HEMOGLOBIN 30.4 pg (27.0-33.0); MEAN CORPUSCULAR HGB CONC 33.3 g/dl (32.0-36.5); MEAN CORPUSCULAR VOLUME 91.3 fl (80.0-96.0); MONO # 0.9 10^3/uL (0.0-0.8); MONO % 7.2 % (2.0-8.0); NEUTROPHILS # 7.4 10^3/uL (1.5-8.5); NEUTROPHILS % 63.1 % (36.0-66.0); PLATELET COUNT, AUTOMATED 232 10^3/uL (150-450); RED BLOOD COUNT 4.96 10^6/uL (4.30-6.10); WHITE BLOOD COUNT 11.7 10^3/uL (4.0-10.0)
[2024-01-18 12:50] LABS: ERYTHROCYTE SEDIMENTATION RATE 6 mm/hr (0-20)
[2024-01-18 13:05] LABS: C REACTIVE PROTEIN QUANTITATIV < 0.40 MG/DL (<1.0)
[2024-01-18 13:07] LABS: ALBUMIN 3.9 G/DL (3.2-5.2); ALKALINE PHOSPHATASE 57 U/L (46-116); ALT/SGPT 44 U/L (7.0-40); AST/SGOT 25 U/L (<34); BILIRUBIN,TOTAL 0.9 MG/DL (0.3-1.2); BLOOD UREA NITROGEN 21 MG/DL (9-23); CALCIUM LEVEL 8.9 MG/DL (8.3-10.6); CARBON DIOXIDE LEVEL 27 MMOL/L (20-31); CHLORIDE LEVEL 108 MMOL/L (98-107); CREATININE FOR GFR 0.96 MG/DL (0.70-1.30); GLOMERULAR FILTRATION RATE > 60.0 (>49); GLUCOSE, FASTING 99 MG/DL (74-106); POTASSIUM SERUM 4.2 MMOL/L (3.5-5.1); SODIUM LEVEL 142 MMOL/L (136-145); TOTAL PROTEIN 6.4 G/DL (5.7-8.2)
== END ==
LOC: M LAB 11:46
PROVIDERS: ATTEND Internal Medicine Rheumatology
DX: M45.0 Ankylosing spondylitis of multiple sites in spine (principal); M89.49 Other hypertrophic osteoarthropathy, multiple sites; R21 Rash and other nonspecific skin eruption; Z79.899 Other long term (current) drug therapy

== ENCOUNTER → 2024-03-06 | Outpatient (CLI) | payer MEDICARE, MEDICAID ==
[2024-03-06 16:45] LABS: ALBUMIN 4.3 G/DL (3.2-5.2); ALKALINE PHOSPHATASE 73 U/L (46-116); ALT/SGPT 53 U/L (7.0-40); AST/SGOT 32 U/L (<34); BILIRUBIN,TOTAL 1.2 MG/DL (0.3-1.2); BLOOD UREA NITROGEN 13 MG/DL (9-23); CALCIUM LEVEL 9.7 MG/DL (8.3-10.6); CARBON DIOXIDE LEVEL 24 MMOL/L (20-31); CHLORIDE LEVEL 110 MMOL/L (98-107); CHOLESTEROL LEVEL 102 MG/DL (<200); CHOLESTEROL RISK RATIO 2.94 (<5); CREATININE FOR GFR 0.93 MG/DL (0.70-1.30); GLOMERULAR FILTRATION RATE > 60.0 (>49); GLUCOSE, FASTING 87 MG/DL (74-106); HDL CHOLESTEROL 34.6 MG/DL (>40); LDL CHOLESTEROL 47.6 MG/DL (<100); NON-HDL-C 67.4 MG/DL; PHOSPHORUS LEVEL 3.5 MG/DL (2.4-5.1); POTASSIUM SERUM 4.4 MMOL/L (3.5-5.1); SODIUM LEVEL 141 MMOL/L (136-145); TOTAL PROTEIN 7.4 G/DL (5.7-8.2); TRIGLYCERIDES LEVEL 99 MG/DL (<150)
== END ==
LOC: M LAB 15:39
PROVIDERS: ATTEND Physician Assistant
DX: E11.9 Type 2 diabetes mellitus without complications (principal); R60.0 Localized edema

== ENCOUNTER → 2024-03-15 | Outpatient (CLI) | payer MEDICARE, MEDICAID ==
[2024-03-15 12:31] LABS: BASO # 0.1 10^3/uL (0.0-0.2); BASO % 0.4 % (0.0-1.0); EOS % 0.1 % (0.0-3.0); HEMATOCRIT 46.8 % (42.0-52.0); HEMOGLOBIN 15.9 g/dl (13.5-17.5); LYMPH # 2.6 10^3/uL (1.5-5.0); LYMPH % 13.2 % (24.0-44.0); MEAN CORPUSCULAR HEMOGLOBIN 30.5 pg (27.0-33.0); MEAN CORPUSCULAR VOLUME 89.7 fl (80.0-96.0); MONO # 1.2 10^3/uL (0.0-0.8); MONO % 6.1 % (2.0-8.0); NEUTROPHILS # 15.4 10^3/uL (1.5-8.5); NEUTROPHILS % 79.6 % (36.0-66.0); PLATELET COUNT, AUTOMATED 246 10^3/uL (150-450); RED BLOOD COUNT 5.22 10^6/uL (4.30-6.10); WHITE BLOOD COUNT 19.3 10^3/uL (4.0-10.0)
[2024-03-15 13:01] LABS: BLOOD UREA NITROGEN 18 MG/DL (9-23); CALCIUM LEVEL 9.5 MG/DL (8.3-10.6); CARBON DIOXIDE LEVEL 26 MMOL/L (20-31); CHLORIDE LEVEL 111 MMOL/L (98-107); CHOLESTEROL LEVEL 103 MG/DL (<200); CHOLESTEROL RISK RATIO 2.81 (<5); CREATININE FOR GFR 0.85 MG/DL (0.70-1.30); GLOMERULAR FILTRATION RATE > 60.0 (>49); GLUCOSE, FASTING 110 MG/DL (74-106); HDL CHOLESTEROL 36.6 MG/DL (>40); LDL CHOLESTEROL 57.6 MG/DL (<100); NON-HDL-C 66.4 MG/DL; SODIUM LEVEL 141 MMOL/L (136-145); TRIGLYCERIDES LEVEL 44 MG/DL (<150)
[2024-03-15 13:09] LABS: TOTAL 25(OH) VITAMIN D 32.9 NG/ML (20.0-100.0)
[2024-03-15 13:41] LABS: HEMOGLOBIN A1c 5.4 % (4.0-6.0)
== END ==
LOC: M LAB 11:04
PROVIDERS: ATTEND Nurse Practitioner Family
DX: Z01.818 Encounter for other preprocedural examination (principal); R60.0 Localized edema; E11.9 Type 2 diabetes mellitus without complications; E78.5 Hyperlipidemia, unspecified; E55.9 Vitamin D deficiency, unspecified

== ENCOUNTER → 2024-03-24 | Outpatient (CLI) | payer MEDICARE, MEDICAID ==
[~2024-03-24] MED LIST changes: +GASTROGRAFIN SOLUTION 30ML As Ordered ONE; +ISOVUE-370 76% 100ML VIAL As Ordered ONE
== END ==
LOC: M RAD 08:00
PROVIDERS: ATTEND Physician Assistant
DX: K59.09 Other constipation (principal); K75.81 Nonalcoholic steatohepatitis (NASH)
CPT/HCPCS: 74177; Q9963; Q9967

== ENCOUNTER → 2024-04-24 | Outpatient (CLI) | payer MEDICARE, MEDICAID ==
[~2024-04-24] MED LIST changes: -GASTROGRAFIN SOLUTION 30ML As Ordered ONE; -ISOVUE-370 76% 100ML VIAL As Ordered ONE
== END ==
LOC: M CARPUL 11:04
PROVIDERS: ATTEND Physician Assistant
DX: I50.30 Unspecified diastolic (congestive) heart failure (principal); R89.1 Abnormal level of hormones in specimens from other organs, systems and tissues

== ENCOUNTER → 2024-05-23 | Outpatient (CLI) | payer MEDICARE, MEDICAID ==
[2024-05-23 11:47] LABS: BASO # 0.1 10^3/uL (0.0-0.2); BASO % 0.5 % (0.0-1.0); C REACTIVE PROTEIN QUANTITATIV < 0.40 MG/DL (<1.0); EOS # 0.4 10^3/uL (0.0-0.5); EOS % 2.8 % (0.0-3.0); HEMATOCRIT 47.4 % (42.0-52.0); LYMPH % 22.4 % (24.0-44.0); MEAN CORPUSCULAR HEMOGLOBIN 30.9 pg (27.0-33.0); MEAN CORPUSCULAR HGB CONC 33.8 g/dl (32.0-36.5); MEAN CORPUSCULAR VOLUME 91.7 fl (80.0-96.0); MONO # 0.9 10^3/uL (0.0-0.8); PLATELET COUNT, AUTOMATED 224 10^3/uL (150-450); RED BLOOD COUNT 5.17 10^6/uL (4.30-6.10); WHITE BLOOD COUNT 13.5 10^3/uL (4.0-10.0)
[2024-05-23 11:49] LABS: ALBUMIN 3.9 G/DL (3.2-5.2); ALKALINE PHOSPHATASE 61 U/L (40-129); ALT/SGPT 51 U/L (7.0-40); AST/SGOT 28 U/L (<34); BILIRUBIN,TOTAL 0.8 MG/DL (0.3-1.2); BLOOD UREA NITROGEN 20 MG/DL (9-23); CALCIUM LEVEL 9.8 MG/DL (8.3-10.6); CARBON DIOXIDE LEVEL 29 MMOL/L (20-31); CHLORIDE LEVEL 109 MMOL/L (98-107); GLOMERULAR FILTRATION RATE > 60.0 (>49); GLUCOSE, FASTING 127 MG/DL (74-106); POTASSIUM SERUM 4.4 MMOL/L (3.5-5.1); SODIUM LEVEL 143 MMOL/L (136-145); TOTAL PROTEIN 6.8 G/DL (5.7-8.2)
[2024-05-23 11:53] LABS: ERYTHROCYTE SEDIMENTATION RATE 6 mm/hr (0-20)
== END ==
LOC: M LAB 10:36
PROVIDERS: ATTEND Internal Medicine Rheumatology
DX: M45.0 Ankylosing spondylitis of multiple sites in spine (principal); M89.49 Other hypertrophic osteoarthropathy, multiple sites; R21 Rash and other nonspecific skin eruption; Z79.899 Other long term (current) drug therapy

== ENCOUNTER → 2024-06-01 | Outpatient (CLI) | payer MEDICARE, MEDICAID ==
[2024-06-01 10:54] LABS: HEMATOCRIT 49.7 % (42.0-52.0); HEMOGLOBIN 16.7 g/dl (13.5-17.5); MEAN CORPUSCULAR HEMOGLOBIN 30.1 pg (27.0-33.0); MEAN CORPUSCULAR HGB CONC 33.6 g/dl (32.0-36.5); MEAN CORPUSCULAR VOLUME 89.5 fl (80.0-96.0); PLATELET COUNT, AUTOMATED 232 10^3/uL (150-450); RED BLOOD COUNT 5.55 10^6/uL (4.30-6.10); WHITE BLOOD COUNT 11.9 10^3/uL (4.0-10.0)
[2024-06-01 11:11] LABS: HEMOGLOBIN A1c 5.6 % (4.0-6.0)
[2024-06-01 11:21] LABS: ALBUMIN 4.1 G/DL (3.2-5.2); ALKALINE PHOSPHATASE 65 U/L (40-129); ALT/SGPT 51 U/L (7.0-40); AST/SGOT 28 U/L (<34); BILIRUBIN,TOTAL 0.9 MG/DL (0.3-1.2); BLOOD UREA NITROGEN 17 MG/DL (9-23); CALCIUM LEVEL 10.1 MG/DL (8.3-10.6); CARBON DIOXIDE LEVEL 27 MMOL/L (20-31); CHLORIDE LEVEL 109 MMOL/L (98-107); CHOLESTEROL LEVEL 107 MG/DL (<200); CHOLESTEROL RISK RATIO 3.05 (<5); CREATININE FOR GFR 0.96 MG/DL (0.70-1.30); GLOMERULAR FILTRATION RATE > 60.0 (>49); GLUCOSE, FASTING 129 MG/DL (74-106); LDL CHOLESTEROL 59.8 MG/DL (<100); POTASSIUM SERUM 4.1 MMOL/L (3.5-5.1); SODIUM LEVEL 145 MMOL/L (136-145); TOTAL PROTEIN 7.1 G/DL (5.7-8.2); TRIGLYCERIDES LEVEL 61 MG/DL (<150)
== END ==
LOC: M LAB 10:18
PROVIDERS: ATTEND Physician Assistant
DX: E11.9 Type 2 diabetes mellitus without complications (principal)

== ENCOUNTER → 2024-06-08 | Outpatient (CLI) | payer MEDICARE, MEDICAID | LOC: M RAD 09:20 | PROVIDERS: ATTEND Internal Medicine Pulmonary Disease | DX: Z12.2 Encounter for screening for malignant neoplasm of respiratory organs (principal); F17.218 Nicotine dependence, cigarettes, with other nicotine-induced disorders; R91.8 Other nonspecific abnormal finding of lung field ==

== ENCOUNTER → 2024-07-26 | Outpatient (CLI) | payer MEDICARE, MEDICAID | LOC: M EKG 09:49 | PROVIDERS: ATTEND Registered Nurse | DX: R00.2 Palpitations (principal) ==

== ENCOUNTER → 2024-08-10 | Outpatient (CLI) | payer MEDICARE, MEDICAID | LOC: M CARPUL 10:31 | PROVIDERS: ATTEND Registered Nurse | DX: R94.31 Abnormal electrocardiogram [ECG] [EKG] (principal); R06.02 Shortness of breath ==

== ENCOUNTER → 2025-01-16 | Outpatient (CLI) | payer MEDICARE, MEDICAID ==
[2025-01-16 10:57] LABS: ALT/SGPT 67.0 U/L (7.0-40); AST/SGOT 44.0 U/L (<34); CALCIUM LEVEL 9.5 MG/DL (8.3-10.6); CARBON DIOXIDE LEVEL 29.0 MMOL/L (20-31); CHLORIDE LEVEL 104.0 MMOL/L (98-107); CREATININE FOR GFR 1.02 MG/DL (0.70-1.30); GLOMERULAR FILTRATION RATE 83.6 (>49); POTASSIUM SERUM 4.3 MMOL/L (3.5-5.1); SODIUM LEVEL 144.0 MMOL/L (136-145)
== END ==
LOC: M LAB 09:29
PROVIDERS: ATTEND Dermatology
DX: B35.1 Tinea unguium (principal)

== ENCOUNTER → 2025-01-16 | Outpatient (CLI) | payer MEDICARE, MEDICAID ==
[2025-01-16 10:36] LABS: BASO # 0.1 10^3/uL (0.0-0.2); BASO % 0.5 % (0.0-1.0); EOS # 0.4 10^3/uL (0.0-0.5); EOS % 3.3 % (0.0-3.0); LYMPH # 3.3 10^3/uL (1.5-5.0); LYMPH % 25.1 % (24.0-44.0); MONO # 0.9 10^3/uL (0.0-0.8); MONO % 6.5 % (2.0-8.0); NEUTROPHILS # 8.5 10^3/uL (1.5-8.5); NEUTROPHILS % 64.3 % (36.0-66.0); PLATELET COUNT, AUTOMATED 250 10^3/uL (150-450)
[2025-01-16 11:00] LABS: ALT/SGPT 68 U/L (7.0-40); AST/SGOT 43 U/L (<34); C REACTIVE PROTEIN QUANTITATIV < 0.50 MG/DL (<1.0); CALCIUM LEVEL 9.5 MG/DL (8.3-10.6); CARBON DIOXIDE LEVEL 29 MMOL/L (20-31); CHLORIDE LEVEL 105 MMOL/L (98-107); CREATININE FOR GFR 0.98 MG/DL (0.70-1.30); GLOMERULAR FILTRATION RATE 87.7 (>49); POTASSIUM SERUM 4.1 MMOL/L (3.5-5.1); SODIUM LEVEL 143 MMOL/L (136-145)
[2025-01-16 11:38] LABS: ERYTHROCYTE SEDIMENTATION RATE 4 mm/hr (0-20)
== END ==
LOC: M LAB 09:34
PROVIDERS: ATTEND Internal Medicine Rheumatology
DX: M45.0 Ankylosing spondylitis of multiple sites in spine (principal); M89.49 Other hypertrophic osteoarthropathy, multiple sites; R21 Rash and other nonspecific skin eruption; Z79.899 Other long term (current) drug therapy; B35.1 Tinea unguium

== ENCOUNTER 2025-01-22 11:00 | Day surgery (SDC) | payer MEDICARE, MEDICAID ==
[~2025-01-22] VITALS: Ht 172.7 cm; Wt 100.5 kg
[2025-01-22 13:58] VITALS: BP 164/82; O2SAT 98
== END 2025-01-22 14:04 | disposition home or self-care (01) ==
LOC: M OPP 11:00
PROVIDERS: ATTEND Internal Medicine Gastroenterology
DX: Z12.11 Encounter for screening for malignant neoplasm of colon (principal); D12.8 Benign neoplasm of rectum; K57.30 Diverticulosis of large intestine without perforation or abscess without bleeding; K64.8 Other hemorrhoids; Z80.0 Family history of malignant neoplasm of digestive organs; Z86.0100 Personal history of colon polyps, unspecified; G47.30 Sleep apnea, unspecified; Z88.8 Allergy status to other drugs, medicaments and biological substances; Z79.82 Long term (current) use of aspirin; Z79.51 Long term (current) use of inhaled steroids; Z79.4 Long term (current) use of insulin; Z79.899 Other long term (current) drug therapy; J44.9 Chronic obstructive pulmonary disease, unspecified

== ENCOUNTER → 2025-03-26 | Outpatient (CLI) | payer MEDICARE, MEDICAID ==
[2025-03-26 11:57] LABS: BASO # 0.1 10^3/uL (0.0-0.2); BASO % 0.7 % (0.0-1.0); EOS # 0.4 10^3/uL (0.0-0.5); EOS % 3.0 % (0.0-3.0); LYMPH # 3.1 10^3/uL (1.5-5.0); LYMPH % 24.9 % (24.0-44.0); MONO # 0.9 10^3/uL (0.0-0.8); MONO % 7.5 % (2.0-8.0); NEUTROPHILS # 7.9 10^3/uL (1.5-8.5); NEUTROPHILS % 63.6 % (36.0-66.0); PLATELET COUNT, AUTOMATED 251 10^3/uL (150-450)
[2025-03-26 12:28] LABS: ALT/SGPT 75.0 U/L (7.0-40); AST/SGOT 37.0 U/L (<34); CALCIUM LEVEL 9.7 MG/DL (8.3-10.6); CARBON DIOXIDE LEVEL 28.0 MMOL/L (20-31); CHLORIDE LEVEL 103.0 MMOL/L (98-107); CHOLESTEROL LEVEL 123.0 MG/DL (<200); CHOLESTEROL RISK RATIO 3.52 (<5); CREATININE FOR GFR 0.97 MG/DL (0.70-1.30); GLOMERULAR FILTRATION RATE 88.8 (>49); LDL CHOLESTEROL 65.5 MG/DL (<100); MAGNESIUM LEVEL 1.8 MG/DL (1.8-2.4); NON-HDL-C 88.1 MG/DL; POTASSIUM SERUM 4.6 MMOL/L (3.5-5.1); SODIUM LEVEL 140.0 MMOL/L (136-145); TRIGLYCERIDES LEVEL 113.0 MG/DL (<150)
== END ==
LOC: M LAB 10:52
PROVIDERS: ATTEND Nurse Practitioner Family
DX: I50.32 Chronic diastolic (congestive) heart failure (principal)

== ENCOUNTER → 2025-03-26 | Outpatient (CLI) | payer MEDICARE, MEDICAID ==
[2025-03-26 12:29] LABS: ALT/SGPT 76.0 U/L (7.0-40); AST/SGOT 38.0 U/L (<34); CALCIUM LEVEL 9.7 MG/DL (8.3-10.6); CARBON DIOXIDE LEVEL 27.0 MMOL/L (20-31); CHLORIDE LEVEL 104.0 MMOL/L (98-107); CHOLESTEROL LEVEL 125.0 MG/DL (<200); CHOLESTEROL RISK RATIO 3.48 (<5); CREATININE FOR GFR 0.97 MG/DL (0.70-1.30); GLOMERULAR FILTRATION RATE 88.8 (>49); LDL CHOLESTEROL 66.1 MG/DL (<100); NON-HDL-C 89.1 MG/DL; POTASSIUM SERUM 4.6 MMOL/L (3.5-5.1); SODIUM LEVEL 140.0 MMOL/L (136-145); TRIGLYCERIDES LEVEL 115.0 MG/DL (<150)
[2025-03-26 12:30] LABS: TOTAL 25(OH) VITAMIN D 31.8 NG/ML (20.0-100.0)
[2025-03-26 12:36] LABS: ESTIMATED AVERAGE GLUCOSE 160.0 MG/DL (60-110)
== END ==
LOC: M LAB 10:54
PROVIDERS: ATTEND Nurse Practitioner Family
DX: E11.9 Type 2 diabetes mellitus without complications (principal); E66.9 Obesity, unspecified; Z68.31 Body mass index [BMI] 31.0-31.9, adult; E55.9 Vitamin D deficiency, unspecified; I50.32 Chronic diastolic (congestive) heart failure

== ENCOUNTER → 2025-05-02 | Outpatient (REF) | payer MEDICARE, MEDICAID | LOC: M SFHCDERM 17:20 | PROVIDERS: ATTEND Dermatology | DX: L82.1 Other seborrheic keratosis (principal); L73.8 Other specified follicular disorders ==

== ENCOUNTER → 2025-05-08 | Outpatient (REF) | payer MEDICARE, MEDICAID | LOC: M SFHCDERM 17:02 | PROVIDERS: ATTEND Dermatology | DX: Z48.02 Encounter for removal of sutures (principal) ==

== ENCOUNTER 2025-05-28 14:27 | Inpatient (IN) | payer MEDICARE, MEDICAID ==
[~2025-05-28] VITALS: Ht 172.7 cm; Wt 97.5 kg
[2025-05-28] MEDS: ACETAMINOPHEN *IV* 1,000 MG in IV 1 EA IV ONE (15:24)
[2025-05-28] MEDS: PANTOPRAZOLE 40MG VIAL IV ONE (15:24)
[2025-05-28 15:30] LABS: PLATELET COUNT, AUTOMATED 351 10^3/uL (150-450)
[2025-05-28 15:50] LABS: KETONE, URINE AUTO RFX NEGATIVE (NEGATIVE); LEUKOCYTE ESTERASE UR AUTO RFX NEGATIVE (NEGATIVE); MUCUS, URINE RFX SMALL (NEGATIVE); NITRITE, URINE AUTO RFX NEGATIVE (NEGATIVE); RBC, URINE AUTO RFX 1 /HPF (0-3); SQUAM EPITHELIAL CELL UR AURFX 0 /HPF (0-6); WBC, URINE AUTO RFX 1 /HPF (0-3)
[2025-05-28 15:53] LABS: ALT/SGPT 65.0 U/L (7.0-40); AST/SGOT 40.0 U/L (<34); CALCIUM LEVEL 9.9 MG/DL (8.3-10.6); CARBON DIOXIDE LEVEL 24.0 MMOL/L (20-31); CHLORIDE LEVEL 103.0 MMOL/L (98-107); CREATININE FOR GFR 1.03 MG/DL (0.70-1.30); GLOMERULAR FILTRATION RATE 82.6 (>49); POTASSIUM SERUM 4.2 MMOL/L (3.5-5.1); SODIUM LEVEL 140.0 MMOL/L (136-145)
[2025-05-28 15:54] LABS: ATYPICAL LYMPH 5 % (0-5); LYMPHOCYTES 1 % (16-44); MONOCYTES 4 % (0-5); NEUTROPHILS 87 % (28-66)
[2025-05-28 15:55] LABS: INR 0.98
[2025-05-28 15:55] LABS: PLATELET ESTIMATE NORMAL (NORMAL)
[2025-05-28] MEDS ORDERED: VANCOMYCIN HCL 1,000 MG, VIAL MATE ADAPTER 1 EACH in NS 250 ML IV ONE (16:00)
[2025-05-28] MEDS ORDERED: ISOVUE-370 76% 100 ML VIAL As Ordered ONE (16:09)
[2025-05-28] MEDS: PIPERACILLIN/TAZOBACTAM SOD 4.5 GM in DEXTROSE 5% (D5W) ADV/MINI-BAG 50 ML IV ONE (16:52)
[2025-05-28] MEDS: VANCOMYCIN HCL 1,000 MG, VIAL MATE ADAPTER 1 EACH in NS 250 ML IV ONE (18:19)
[2025-05-28] MEDS ORDERED: GLUCOSE 4 GM CHEW PO PRN (19:00)
[2025-05-28] MEDS ORDERED: DEXTROSE 50% 50 ML SYRINGE IV PRN (19:00)
[2025-05-28] MEDS ORDERED: GLUCAGON INJ 1 MG VIAL SC PRN (19:00)
[2025-05-28] MEDS: NS (Normal Saline) 0.9% 1,000 ML IV ONE (19:02)
[2025-05-28 20:24] LABS: INR 1.04
[2025-05-28] MEDS: metroNIDAZOLE 500 MG in IV 1 EA IV SCH (20:44)
[2025-05-28] MEDS: NS (Normal Saline) 0.9% 1,000 ML IV SCH (20:44)
[2025-05-28] MEDS ORDERED: SPIR-10 PO (20:59)
[2025-05-28] MEDS ORDERED: KETO120S5 TOP (20:59)
[2025-05-28] MEDS ORDERED: HOME MED LIST COMPLETE! XX SCH (21:00)
[2025-05-28] MEDS: INSULIN LISPRO (NovoLOG) PER UNIT SC SCH (21:34)
[2025-05-28 22:23] LABS: BASO # 0.1 10^3/uL (0.0-0.2); BASO % 0.2 % (0.0-1.0); EOS # 0.0 10^3/uL (0.0-0.5); EOS % 0.0 % (0.0-3.0); LYMPH # 2.3 10^3/uL (1.5-5.0); LYMPH % 7.3 % (24.0-44.0); MONO # 2.4 10^3/uL (0.0-0.8); MONO % 7.7 % (2.0-8.0); NEUTROPHILS # 26.2 10^3/uL (1.5-8.5); NEUTROPHILS % 84.1 % (36.0-66.0); PLATELET COUNT, AUTOMATED 326 10^3/uL (150-450)
[2025-05-28] MEDS: PIPERACILLIN/TAZOBACTAM SOD 4.5 GM in DEXTROSE 5% (D5W) ADV/MINI-BAG 50 ML IV SCH (23:44)
[2025-05-29] MEDS: ACETAMINOPHEN *IV* 1,000 MG in IV 1 EA IV ONE (00:52)
[2025-05-29] MEDS ORDERED: ALBUTEROL 90 MCG/ACT 8 GM HFA INHALER INH PRN (07:30)
[2025-05-29] MEDS ORDERED: FLUTICASONE PROPIONATE 0.05% NASAL SPRAY 16 GM NARES PRN (07:30)
[2025-05-29] MEDS: ACETAMINOPHEN 325 MG TAB PO PRN (08:01)
[2025-05-29] MEDS: SPIRONOLACTONE 25 MG TAB PO SCH (08:02)
[2025-05-29] MEDS: amLODIPine 10 MG TAB PO SCH (08:02)
[2025-05-29] MEDS: PANTOPRAZOLE 40MG VIAL IV SCH (08:02)
[2025-05-29] MEDS: INSULIN LISPRO (NovoLOG) PER UNIT SC SCH (08:02)
[2025-05-29] MEDS: ASPIRIN 81 MG ENTERIC TABLET PO SCH (08:02)
[2025-05-29 08:09] LABS: BASO # 0.1 10^3/uL (0.0-0.2); BASO % 0.3 % (0.0-1.0); EOS # 0.0 10^3/uL (0.0-0.5); EOS % 0.0 % (0.0-3.0); LYMPH # 2.3 10^3/uL (1.5-5.0); LYMPH % 8.5 % (24.0-44.0); MONO # 2.2 10^3/uL (0.0-0.8); MONO % 7.9 % (2.0-8.0); NEUTROPHILS # 22.5 10^3/uL (1.5-8.5); NEUTROPHILS % 82.7 % (36.0-66.0); PLATELET COUNT, AUTOMATED 287 10^3/uL (150-450)
[2025-05-29 08:34] LABS: CALCIUM LEVEL 8.1 MG/DL (8.3-10.6); CARBON DIOXIDE LEVEL 24 MMOL/L (20-31); CHLORIDE LEVEL 105 MMOL/L (98-107); CREATININE FOR GFR 0.93 MG/DL (0.70-1.30); GLOMERULAR FILTRATION RATE > 90.0 (>49); MAGNESIUM LEVEL 1.6 MG/DL (1.8-2.4); POTASSIUM SERUM 3.8 MMOL/L (3.5-5.1); SODIUM LEVEL 141 MMOL/L (136-145)
[2025-05-29] MEDS: SYMBICORT 160/4.5MCG INHALER 6GM INH SCH (08:34)
[2025-05-29] MEDS: MAG SULF 1GM/100ML (MAG RUN) 1 GM in IV 1 EA IV SCH ×2 (11:28→15:38)
[2025-05-29 14:25] VITALS: BP 144/79; TEMP 100.2; O2SAT 97
[2025-05-29 14:35] VITALS: TEMP 98.3
[2025-05-29 21:06] VITALS: BP 132/65; TEMP 99.3; O2SAT 96
[2025-05-29] MEDS: ATORVASTATIN 20 MG TAB PO SCH (21:09)
[2025-05-29 23:59] VITALS: BP 143/81; TEMP 98.3; O2SAT 98
[2025-05-30] VITALS (8 sets, daily range): BP systolic 126–200; BP diastolic 73–96; TEMP 98–101; O2SAT 94–98
[2025-05-30] MEDS: ONDANSETRON 4MG/2ML VIAL IV PRN (01:40)
[2025-05-30 07:28] LABS: BASO # 0.1 10^3/uL (0.0-0.2); BASO % 0.3 % (0.0-1.0); EOS # 0.1 10^3/uL (0.0-0.5); EOS % 0.3 % (0.0-3.0); LYMPH # 2.6 10^3/uL (1.5-5.0); LYMPH % 9.9 % (24.0-44.0); MONO # 1.9 10^3/uL (0.0-0.8); MONO % 7.4 % (2.0-8.0); NEUTROPHILS # 21.5 10^3/uL (1.5-8.5); NEUTROPHILS % 81.5 % (36.0-66.0); PLATELET COUNT, AUTOMATED 269 10^3/uL (150-450)
[2025-05-30 07:52] LABS: CALCIUM LEVEL 7.9 MG/DL (8.3-10.6); CARBON DIOXIDE LEVEL 26 MMOL/L (20-31); CHLORIDE LEVEL 106 MMOL/L (98-107); CREATININE FOR GFR 0.91 MG/DL (0.70-1.30); GLOMERULAR FILTRATION RATE > 90.0 (>49); MAGNESIUM LEVEL 2.0 MG/DL (1.8-2.4); POTASSIUM SERUM 3.8 MMOL/L (3.5-5.1); SODIUM LEVEL 141 MMOL/L (136-145)
[2025-05-30] MEDS: MOM 30 ML SUSPENSION UDC PO ONE (08:56)
[2025-05-30] MEDS: amLODIPine 10 MG TAB PO SCH (08:58)
[2025-05-30] MEDS: SIMETHICONE 80MG CHEW TAB PO SCH (11:16)
[2025-05-30] MEDS ORDERED: MORPHINE 2 MG/ML 1 ML VIAL IV ONE (11:35)
[2025-05-30] MEDS: FLEET ENEMA PR ONE (13:55)
[2025-05-30] MEDS: POLYETHYLENE GLYCOL 238 GM BOTTLE PO ONE (17:39)
[2025-05-31] VITALS (12 sets, daily range): BP systolic 118–150; BP diastolic 57–83; TEMP 97.3–99.9; O2SAT 90–96
[2025-05-31] MEDS: POLYETHYLENE GLYCOL 238 GM BOTTLE PO ONE (06:39)
[2025-05-31 07:44] LABS: BASO # 0.1 10^3/uL (0.0-0.2); BASO % 0.4 % (0.0-1.0); EOS # 0.2 10^3/uL (0.0-0.5); EOS % 0.9 % (0.0-3.0); LYMPH # 2.4 10^3/uL (1.5-5.0); LYMPH % 11.1 % (24.0-44.0); MONO # 1.6 10^3/uL (0.0-0.8); MONO % 7.4 % (2.0-8.0); NEUTROPHILS # 16.9 10^3/uL (1.5-8.5); NEUTROPHILS % 79.7 % (36.0-66.0); PLATELET COUNT, AUTOMATED 239 10^3/uL (150-450)
[2025-05-31 07:57] LABS: ALT/SGPT 32.0 U/L (7.0-40); AST/SGOT 18.0 U/L (<34); CALCIUM LEVEL 8.5 MG/DL (8.3-10.6); CARBON DIOXIDE LEVEL 29.0 MMOL/L (20-31); CHLORIDE LEVEL 103.0 MMOL/L (98-107); CREATININE FOR GFR 1.02 MG/DL (0.70-1.30); GLOMERULAR FILTRATION RATE 83.6 (>49); MAGNESIUM LEVEL 2.0 MG/DL (1.8-2.4); POTASSIUM SERUM 3.8 MMOL/L (3.5-5.1); SODIUM LEVEL 139.0 MMOL/L (136-145)
[2025-05-31] MEDS: NS (Normal Saline) 0.9% 1,000 ML IV SCH (19:35)
[2025-06-01 03:09] VITALS: BP 120/69; TEMP 98.6; O2SAT 96
[2025-06-01 06:39] LABS: BASO # 0.1 10^3/uL (0.0-0.2); BASO % 0.5 % (0.0-1.0); EOS # 0.5 10^3/uL (0.0-0.5); EOS % 3.2 % (0.0-3.0); LYMPH # 2.5 10^3/uL (1.5-5.0); LYMPH % 17.0 % (24.0-44.0); MONO # 1.0 10^3/uL (0.0-0.8); MONO % 6.6 % (2.0-8.0); NEUTROPHILS # 10.7 10^3/uL (1.5-8.5); NEUTROPHILS % 72.2 % (36.0-66.0); PLATELET COUNT, AUTOMATED 251 10^3/uL (150-450)
[2025-06-01 07:02] LABS: CALCIUM LEVEL 8.1 MG/DL (8.3-10.6); CARBON DIOXIDE LEVEL 27.0 MMOL/L (20-31); CHLORIDE LEVEL 106.0 MMOL/L (98-107); CREATININE FOR GFR 1.0 MG/DL (0.70-1.30); GLOMERULAR FILTRATION RATE 85.6 (>49); MAGNESIUM LEVEL 1.9 MG/DL (1.8-2.4); POTASSIUM SERUM 3.6 MMOL/L (3.5-5.1); SODIUM LEVEL 143.0 MMOL/L (136-145)
[2025-06-01 08:03] VITALS: BP 137/69; TEMP 98.7; O2SAT 92
[2025-06-01] MEDS: MAG SULF 1GM/100ML (MAG RUN) 1 GM in IV 1 EA IV ONE (08:37)
[2025-06-01 08:38] VITALS: BP 137/69
[2025-06-01] MEDS: POTASSIUM CHLORIDE 10MEQ SR TABLET PO ONE (08:38)
[2025-06-01] MEDS ORDERED: CIPR250T3 PO (12:06)
[2025-06-01] MEDS ORDERED: METR-265 PO (12:06)
[2025-06-01 12:42] VITALS: BP 148/71; TEMP 98.6; O2SAT 96
== END 2025-06-01 14:03 | disposition home or self-care (01) | DRG 377 ==
LOC: M ED 14:27 → M ED INP 18:56 → M MSPAV 05-29 14:14
PROVIDERS: ADMIT Student in an Organized Health Care Education/Training Program; ATTEND Student in an Organized Health Care Education/Training Program
PROC: 0DBL8ZX Excision of Transverse Colon, Via Natural or Artificial Opening Endoscopic, Diagnostic (ICD-10-PCS; principal; 2025-05-31 12:55)
DX: K57.33 Diverticulitis of large intestine without perforation or abscess with bleeding (principal); K55.039 Acute (reversible) ischemia of large intestine, extent unspecified; E11.9 Type 2 diabetes mellitus without complications; J45.909 Unspecified asthma, uncomplicated; J44.9 Chronic obstructive pulmonary disease, unspecified; I10 Essential (primary) hypertension; E78.5 Hyperlipidemia, unspecified; E80.6 Other disorders of bilirubin metabolism; K52.9 Noninfective gastroenteritis and colitis, unspecified; M19.90 Unspecified osteoarthritis, unspecified site; K21.9 Gastro-esophageal reflux disease without esophagitis; R74.01 Elevation of levels of liver transaminase levels; G47.33 Obstructive sleep apnea (adult) (pediatric); M06.9 Rheumatoid arthritis, unspecified; E78.00 Pure hypercholesterolemia, unspecified; D75.1 Secondary polycythemia; E83.42 Hypomagnesemia; N28.1 Cyst of kidney, acquired; J84.10 Pulmonary fibrosis, unspecified; Z79.899 Other long term (current) drug therapy; Z79.82 Long term (current) use of aspirin; Z88.8 Allergy status to other drugs, medicaments and biological substances

== ENCOUNTER → 2025-06-13 | Outpatient (CLI) | payer MEDICARE, MEDICAID ==
[~2025-06-13] MED LIST changes: +CIPR250T3 PO; +KETO120S5 TOP; +METR-265 PO; +SPIR-10 PO
[2025-06-13 13:14] LABS: CREATININE, URINE 93.2 MG/DL
[2025-06-13 13:15] LABS: MALB URINE SIEMENS < 3.0 MG/L
[2025-06-13 13:16] LABS: ALT/SGPT 69 U/L (7.0-40); AST/SGOT 24 U/L (<34); CALCIUM LEVEL 9.1 MG/DL (8.3-10.6); CARBON DIOXIDE LEVEL 29 MMOL/L (20-31); CHLORIDE LEVEL 110 MMOL/L (98-107); CHOLESTEROL LEVEL 141 MG/DL (<200); CHOLESTEROL RISK RATIO 4.20 (<5); CREATININE FOR GFR 0.95 MG/DL (0.70-1.30); GLOMERULAR FILTRATION RATE > 90.0 (>49); LDL CHOLESTEROL 86.1 MG/DL (<100); NON-HDL-C 107.5 MG/DL; POTASSIUM SERUM 4.6 MMOL/L (3.5-5.1); SODIUM LEVEL 146 MMOL/L (136-145); TRIGLYCERIDES LEVEL 107 MG/DL (<150)
[2025-06-13 14:05] LABS: ESTIMATED AVERAGE GLUCOSE 126.0 MG/DL (60-110)
== END ==
LOC: M LAB 11:50
PROVIDERS: ATTEND Nurse Practitioner Family
DX: E11.9 Type 2 diabetes mellitus without complications (principal); R94.5 Abnormal results of liver function studies; K75.81 Nonalcoholic steatohepatitis (NASH)

== ENCOUNTER → 2025-06-18 | Outpatient (CLI) | payer MEDICARE, MEDICAID | LOC: M PLAIMG 11:32 | PROVIDERS: ATTEND Internal Medicine Pulmonary Disease | DX: R91.8 Other nonspecific abnormal finding of lung field (principal) ==